=== PATIENT | female | born 1945 | race Caucasian/White ===

== ENCOUNTER 2024-05-27 18:52 | Emergency (ER) | payer MEDICARE, OTHER, SELFPAY ==
[2024-05-27 18:56] VITALS: BP 177/75; PULSE 71; RESP 16; TEMP 36.1; O2SAT 96; BMI 28.3
[2024-05-27 19:50] LABS: Bacteria Urine Many (>30); RBC Urine 0-1/HPF (0-5/HPF); Squamous Epithelial Cell Urine 5-10 /HPF (0-5/HPF); Urine Volume 10mL (spun); WBC Urine 10-30/HPF (0-5/HPF)
[2024-05-27 19:51] LABS: Culture Indicated Urine Specimen Cultured; Mucus Urine 1+ (Negative)
[2024-05-27 19:57] VITALS: O2SAT 97
[2024-05-27 19:58] VITALS: BP 178/79; PULSE 72; RESP 18; O2SAT 98
--- NOTE | 2024-05-27 20:37 | ED_ITS ---
HPI - Female Genitourinary General Chief complaint: Urogenital-Female Stated complaint: thinks has UTI, Rt ft pain Time Seen by Provider: 05/27/24 19:16 History of Present Illness HPI Narrative: 78-year-old female presents for possible UTI. Reports frequency and burning with urination. Triage report states right foot pain. Patient states that she has chronic foot pain but this is not why she is here today and does not want this issue addressed in the emergency department. Patient has had intermittent burning for the last 2 weeks but due to transportation issues this is the 1st time she was being seen for this issue. Denies fevers, chills, nausea, vomiting, flank pain, other complaints at this time. Denies recent antibiotic use. Related Data Previous Rx's Medication Instructions Recorded cephalexin 500 mg capsule 500 mg PO Q12H #10 caps 05/27/24 Allergies Allergy/AdvReac Type Severity Reaction Status Date / Time Sulfa (Sulfonamide Allergy Verified 05/27/24 18:56 Antibiotics) Patient History alcohol intake frequency: holidays/special occasions only Substance Use Type: does not use Exam Initial Vital Signs Initial Vital Signs: Vital Signs Temperature 97.0 F L 05/27/24 18:56 Pulse Rate 71 05/27/24 18:56 Respiratory Rate 16 05/27/24 18:56 Blood Pressure 177/75 H 05/27/24 18:56 Pulse Oximetry 96 05/27/24 18:56 Oxygen Delivery Method Room Air 05/27/24 18:56 Const: Awake, alert, no acute distress, nontoxic appearing Cardiac: regular rate, regular rhythm RESP: unlabored, clear bilaterally, no wheezing GI: Soft, nontender, nondistended MSK: Atraumatic, no midline tenderness, no CVA tenderness bilaterally Skin: Warm, Dry, intact, no rashes Neuro: AO x3, CN II-XII grossly intact, moves all extremities Course Orders Ordered: Discontinued Medications Cephalexin HCl (Cephalexin 250 Mg Capsule) 1,000 mg PO NOW ONE Stop: 05/27/24 20:38 Last Admin: 05/27/24 20:46 Dose: 1,000 mg Documented By: DANTE Ondansetron HCl (Ondansetron 4 Mg/2 Ml Inj) 4 mg IV NOW PRN PRN Reason: Nausea And Vomiting Ondansetron HCl (Ondansetron 4 Mg Odt) 4 mg SL NOW PRN PRN Reason: Nausea And Vomiting Vital Signs Vital signs: Vital Signs - 8 hr 05/27/24 18:56 05/27/24 19:57 05/27/24 19:58 Temperature 97.0 F L Pulse Rate 71 Respiratory Rate 16 Blood Pressure 177/75 H 178/79 H Pulse Oximetry 96 97 Oxygen Delivery Method Room Air 05/27/24 19:58 Temperature Pulse Rate 72 Respiratory Rate 18 Blood Pressure Pulse Oximetry 98 Oxygen Delivery Method Room Air MDM - Female Genitourinary Lab Data Labs: Lab Results 05/27/24 Range/Units 19:00 Urine RBC 0-1/hpf (0-5/HPF) Urine WBC 10-30/hpf H (0-5/HPF) Ur Squamous Epith Cells 5-10 /hpf H (0-5/HPF) Urine Bacteria Many (>30) H (None) Urine Mucus 1+ H (Negative) Ur Culture Indicated? Specimen cultured Vol Urine Centrifuged 10ml (spun) Urine Dip Bedside Urine Glucose Negative Bedside Urine Bilirubin - Negative Bedside Urine Ketone - Negative Urine Specific [place] 1.015 Bedside Urine Occult Blood ++ Bedside Urine pH 6.0 Bedside Urine Protein - Negative Bedside Urine Nitrite + Positive Bedside Urine Leukocytes ++ 125 Esterase MDM Narrative Medical decision making narrative: Well-appearing patient with symptoms of urinary tract infection. Physical exam is otherwise unremarkable. Abdomen is soft and nontender, patient has no flank pain, no signs or symptoms of systemic infection. Urinalysis confirms UTI. Patient given initial dose of antibiotic in the emergency department and prescription sent to pharmacy of choice. Discharge Plan Departure Patient Disposition: Home Clinical Impression: Urinary tract infection Instructions: DI for Urinary Tract Infection (UTI) Activity Restrictions/Additional Instructions: Finish all of your antibiotics even if you feel improved. Drink plenty of fluids. Come back if you notice you are not improving after several days of antibiotics or if you have fever, upper back pain, or vomiting. Prescriptions: New cephalexin 500 mg capsule 500 mg PO Q12H Qty: 10 0RF Referrals: Miscellaneous,DoctorMD [Primary Care Provider] - Stand Alone Forms: Patient Portal/API
[2024-05-27] MEDS: cephALEXin 250 MG CAPSULE 1000 MG PO (20:46)
[2024-05-27 20:55] VITALS: BP 178/79; PULSE 72; RESP 18; O2SAT 96
== END 2024-05-27 21:12 | disposition home or self-care (01) ==
PROVIDERS: Emergency Provider Emergency Medicine
DX: N39.0 Urinary tract infection, site not specified (principal)
CPT/HCPCS: 81003; 81015; 87077; 87086; 87186; 99283

== ENCOUNTER 2024-09-03 14:53 | Emergency (ER) | payer SELFPAY ==
[2024-09-03 15:12] VITALS: BP 127/62; PULSE 74; RESP 18; TEMP 36.4; O2SAT 95; BMI 29.2
[2024-09-03 16:23] LABS: Bacteria Urine None Seen; Culture Indicated Urine Cult Not Indicated; RBC Urine 1-5/HPF (0-5/HPF); Squamous Epithelial Cell Urine None Seen (0-5/HPF); Urine Volume 10mL (spun); WBC Urine None Seen (0-5/HPF)
[2024-09-03] MEDS: ONDANSETRON 4 MG/2 ML INJ IV (16:28)
[2024-09-03 16:50] LABS: Add Manual Diff / Slide Review NO; Basophils Absolute Auto 100 /uL (0-100); Basophils Percent Auto 1.1 % (0-2); Eosinophils Absolute Auto 200 /uL (0-450); Eosinophils Percent Auto 3.7 % (2-4); Hematocrit 34.2 % (36-46); Hemoglobin 11.7 g/dL (12.0-16.0); Lymphocytes Absolute Auto 1500 /uL (1100-4500); Lymphocytes Percent Auto 24.1 % (25-40); Mean Corpuscular HGB Conc 34.3 % (30-36); Mean Corpuscular Hemoglobin 32.9 PG (26-34); Mean Corpuscular Volume 95.7 fL (80-100); Monocytes Absolute Auto 700 /uL (0-900); Monocytes Percent Auto 11.6 % (3-14); Neutrophils Absolute Auto 3700 /uL (1500-7000); Neutrophils Percent Auto 59.5 % (50-75); Platelet Count 252 X10^3/uL (150-400); Red Blood Cell Count 3.57 X10^6/uL (4.0-5.2); Red Cell Distribution Width 12.9 % (11.6-14.8); White Blood Cell Count 6.2 X10^3/uL (4.5-11.0)
[2024-09-03 16:55] LABS: Alanine Aminotransferase 28 IU/L (<35); Albumin 3.9 g/dL (3.5-5.0); Albumin Globulin Ratio 1.4 (1.0-2.8); Alkaline Phosphatase 115 U/L (38-126); Aspartate Aminotransferase 41 IU/L (14-36); BUN Creatinine Ratio 33.3 (6-22); Bilirubin Total 0.5 mg/dL (0.2-1.3); Blood Urea Nitrogen 22 mg/dL (7-17); Calcium 9.3 mg/dL (8.4-10.2); Carbon Dioxide 31 mmol/L (22-32); Chloride 102 mmol/L (98-107); Estimated Glomerular Filt Rate > 60 mL/min (>60); Globulin 2.7 g/dL (1.7-4.1); Glucose 89 mg/dL (80-110); HEMOLYSIS < 15 (0-50); Lipase 90 U/L (23-300); Potassium 3.7 mmol/L (3.4-5.1); Sodium 135 mmol/L (137-145); Total Protein 6.6 g/dL (6.3-8.2)
[2024-09-03 17:07] VITALS: PULSE 70; O2SAT 95
--- NOTE | 2024-09-03 17:13 | EKG_ITS ---
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
--- NOTE | 2024-09-03 17:16 | DI.CT.S_ITS ---
PROCEDURE: CT KIDNEY URETER BLADDER (KUB) INDICATIONS: LLQ/flank pain TECHNIQUE: Axial sections were acquired from the lung bases to the pubic symphysis. Coronal and sagittal reformats were performed. For radiation dose reduction, the following was used: automated exposure control, adjustment of mA and/or kV according to patient size. COMPARISON: None. FINDINGS: Image quality: Diagnostic. Peritoneum: No pneumoperitoneum or ascites. Bones: No acute osseous abnormality. Lower Chest: Mild aortic valve calcifications. Small hiatal hernia. Liver: Normal in size and contour. Gallbladder: No stones or pericholecystic fluid. Biliary tree: No intrahepatic or extrahepatic biliary ductal dilatation. Pancreas: Within normal limits. Spleen: Normal in size and contour. Kidneys: Mild left hydroureteronephrosis without an obstructing calculus. 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 Adrenals: No adrenal nodularity. Bladder: Mildly elongated appearance of the left side of the urinary bladder (4/52), possibly a psoas hitch. : No acute abnormality. Stomach: Normal in size and contour. Bowel: Normal in diameter without any bowel obstruction. No secondary signs of acute appendicitis. Scattered colonic diverticulosis. Lymph Nodes: No retroperitoneal, mesenteric, or inguinal lymphadenopathy. Vascular: No abdominal aortic aneurysm. Soft Tissues: No acute abnormality. IMPRESSION: Mild left hydroureteronephrosis without an obstructing calculus, which may be secondary to a recently passed calculus or ascending infection. Please correlate with urinalysis. Dictated by: Tony Villafuerte M.D. on 09/03/2024 at 17:27 Approved by: Tony Villafuerte M.D. on 09/03/2024 at 17:39
[2024-09-03 17:30] VITALS: PULSE 81
[2024-09-03] MEDS: KETOROLAC 30 MG/ML VIAL 15 MG IV (17:37)
--- NOTE | 2024-09-03 18:00 | ED_ITS ---
HPI - Abdominal Pain General Chief Complaint: Urogenital-Female Stated Complaint: abd,back, and leg pain Time Seen by Provider: 09/03/24 15:47 Source: patient Mode of arrival: Ambulatory History of Present Illness HPI narrative: 78-year-old female with left flank and left lower quadrant abdominal discomfort, history of kidney stones, diagnosed with urinary tract infection at urgent care clinic yesterday, started on cephalexin antibiotic. Still having pain. Also has pain to her left anterior thigh, bruising noted, no specific injury recalled at that area. No truncal injuries recalled. No fevers or chills. No nausea or vomiting. No cough or shortness of breath. Related Data Previous Rx's Medication Instructions Recorded cephalexin 500 mg capsule 500 mg PO Q12H #10 caps 05/27/24 Allergies Allergy/AdvReac Type Severity Reaction Status Date / Time Sulfa (Sulfonamide Allergy Verified 09/03/24 15:09 Antibiotics) Review of Systems Review of Systems Narrative: See HPI Patient History Social History (System 09/03/24 @ 15:09 by Brayden Perkins) Smoking Status: Never smoker Smoking Status: Never smoker alcohol intake frequency: holidays/special occasions only Substance Use Type: does not use Exam Narrative Exam Narrative: GENERAL: Well-developed patient, in mild distress. HEAD: Atraumatic. Normocephalic. EYES: Pupils equal round and reactive. Extraocular motions intact. No scleral icterus. No injection or drainage. ENT: Nose without bleeding, purulent drainage. Airway patent. NECK: Trachea midline. Non tender CARDIOVASCULAR: Regular rate and rhythm without murmurs, gallops, or rubs. RESPIRATORY: Clear to auscultation. Breath sounds equal bilaterally. No wheezes, rales, or rhonchi. GASTROINTESTINAL: Abdomen soft, non-tender, nondistended. EXTREMITIES: No edema or joint tenderness. Proximal anterior thigh with oval shaped bruise about 8 x 5 cm with central induration, no fluctuance, appears days old, no skin vesicles. BACK: Nontender without deformity or crepitance. No flank tenderness. NEURO: AOx3. Motor functions grossly nonfocal SKIN: No rash or erythema of visible areas Initial Vital Signs Initial Vital Signs: Vital Signs Temperature 97.6 F 09/03/24 15:12 Pulse Rate 74 09/03/24 15:12 Respiratory Rate 18 09/03/24 15:12 Blood Pressure 127/62 09/03/24 15:12 Pulse Oximetry 95 09/03/24 15:12 Oxygen Delivery Method Room Air 09/03/24 15:12 Course Orders Ordered: ED Orders 09/03/24 15:50 Urine Microscopic Stat 09/03/24 16:08 Complete Blood Count AUTO DIFF Stat Comprehensive Metabolic Panel Stat Lipase Stat 09/03/24 16:42 EKG-12 Lead Stat 09/03/24 17:16 CT kidney ureter bladder (KUB) Stat Discontinued Medications Ketorolac Tromethamine (Ketorolac 30 Mg/Ml Vial) 15 mg IV NOW ONE Stop: 09/03/24 17:17 Last Admin: 09/03/24 17:37 Dose: 15 mg Documented By: ODILON Ondansetron HCl (Ondansetron 4 Mg/2 Ml Inj) 4 mg IV NOW PRN PRN Reason: Nausea And Vomiting Last Admin: 09/03/24 16:28 Dose: 4 mg Documented By: ODILON Ondansetron HCl (Ondansetron 4 Mg Odt) 4 mg SL NOW PRN PRN Reason: Nausea And Vomiting Ondansetron HCl (Ondansetron 4 Mg/2 Ml Inj) 4 mg IV NOW PRN PRN Reason: Nausea And Vomiting Tramadol HCl (Tramadol 50 Mg Prepack) 1 bottle MISC DIRECTED ONE Stop: 09/03/24 19:18 Last Admin: 09/03/24 19:24 Dose: 1 bottle Documented By: YVONNE Vital Signs Vital signs: Vital Signs - 8 hr 09/03/24 15:12 09/03/24 17:07 09/03/24 17:30 Temperature 97.6 F Pulse Rate 74 70 81 Respiratory Rate 18 Blood Pressure 127/62 Pulse Oximetry 95 95 Oxygen Delivery Method Room Air 09/03/24 18:18 09/03/24 18:18 09/03/24 19:33 Temperature 97.8 F Pulse Rate 60 64 Respiratory Rate 16 Blood Pressure 147/65 H 139/76 Pulse Oximetry 97 97 Oxygen Delivery Method Room Air MDM - Abdominal Pain Lab Data Attestation: I reviewed the patient's lab results. Lab results narrative: White blood cell count 6200, hemoglobin 11.7, platelets adequate. CMP unremarkable. Urine dip negative. Lipase normal. 09/03/24 16:08 09/03/24 16:08 Labs: Lab Results 09/03/24 09/03/24 Range/Units 15:50 16:08 WBC 6.2 (4.5-11.0) X10^3/uL RBC 3.57 L (4.0-5.2) X10^6/uL Hgb 11.7 L (12.0-16.0) g/dL Hct 34.2 L (36-46) % MCV 95.7 (80-100) fL MCH 32.9 (26-34) PG MCHC 34.3 (30-36) % RDW 12.9 (11.6-14.8) % Plt Count 252 (150-400) X10^3/uL Neut % (Auto) 59.5 (50-75) % Lymph % (Auto) 24.1 L (25-40) % Iron % (Auto) 11.6 (3-14) % Eos % (Auto) 3.7 (2-4) % Baso % (Auto) 1.1 (0-2) % Neut # (Auto) 3700 (7790-0711) /uL Lymph # (Auto) 1500 (5603-7742) /uL Iron # (Auto) 700 (0-900) /uL Eos # (Auto) 200 (0-450) /uL Baso # (Auto) 100 (0-100) /uL Sodium 135 L (137-145) mmol/L Potassium 3.7 (3.4-5.1) mmol/L Chloride 102 (98-107) mmol/L Carbon Dioxide 31 (22-32) mmol/L BUN 22 H (7-17) mg/dL Creatinine 0.66 (0.52-1.04) mg/dL Estimated GFR > 60 (>60) mL/min BUN/Creatinine Ratio 33.3 H (6-22) Glucose 89 (80-110) mg/dL Calcium 9.3 (8.4-10.2) mg/dL Total Bilirubin 0.5 (0.2-1.3) mg/dL AST 41 H (14-36) IU/L ALT 28 (<35) IU/L Alkaline Phosphatase 115 (38-126) U/L Total Protein 6.6 (6.3-8.2) g/dL Albumin 3.9 (3.5-5.0) g/dL Globulin 2.7 (1.7-4.1) g/dL Albumin/Globulin Ratio 1.4 (1.0-2.8) Lipase 90 (23-300) U/L Urine RBC 1-5/hpf (0-5/HPF) Urine WBC None seen (0-5/HPF) Ur Squamous Epith Cells None seen (0-5/HPF) Urine Bacteria None seen (None) Ur Culture Indicated? Cult not indicated Vol Urine Centrifuged 10ml (spun) Point of care testing: Urine Dip Bedside Urine Glucose Negative Bedside Urine Bilirubin - Negative Bedside Urine Ketone - Negative Urine Specific [place] 1.025 Bedside Urine Occult Blood + Bedside Urine pH 6.0 Bedside Urine Protein - Negative Bedside Urine Urobilinogen - Negative Bedside Urine Nitrite - Negative Bedside Urine Leukocytes - Negative Esterase Imaging Data CT scan - abdomen/pelvis: Radiologist's Impression: [address] [address] [address] Scan Report Signed Patient: Nery Duran MR#: [id number] : 1945 Acct:[id number] Age/Sex: 78 / F Date of Service: 09/03/24 Loc: ED Accession Number: [id number] Procedure: CT kidney ureter bladder (KUB) Ordering Provider: Rosa Toro MD PROCEDURE: CT KIDNEY URETER BLADDER (KUB) INDICATIONS: LLQ/flank pain TECHNIQUE: Axial sections were acquired from the lung bases to the pubic symphysis. Coronal and sagittal reformats were performed. For radiation dose reduction, the following was used: automated exposure control, adjustment of mA and/or kV according to patient size. COMPARISON: None. FINDINGS: Image quality: Diagnostic. Peritoneum: No pneumoperitoneum or ascites. Bones: No acute osseous abnormality. Lower Chest: Mild aortic valve calcifications. Small hiatal hernia. Liver: Normal in size and contour. Gallbladder: No stones or pericholecystic fluid. Biliary tree: No intrahepatic or extrahepatic biliary ductal dilatation. Pancreas: Within normal limits. Spleen: Normal in size and contour. Kidneys: Mild left hydroureteronephrosis without an obstructing calculus. 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 Adrenals: No adrenal nodularity. Bladder: Mildly elongated appearance of the left side of the urinary bladder (4/52), possibly a psoas hitch. : No acute abnormality. Stomach: Normal in size and contour. Bowel: Normal in diameter without any bowel obstruction. No secondary signs of acute appendicitis. Scattered colonic diverticulosis. Lymph Nodes: No retroperitoneal, mesenteric, or inguinal lymphadenopathy. Vascular: No abdominal aortic aneurysm. Soft Tissues: No acute abnormality. IMPRESSION: Mild left hydroureteronephrosis without an obstructing calculus, which may be secondary to a recently passed calculus or ascending infection. Please correlate with urinalysis. Dictated by: Tony Villafuerte M.D. on 09/03/2024 at 17:27 Approved by: Tony Villafuerte M.D. on 09/03/2024 at 17:39 ECG Data Attestation: I personally reviewed and interpreted this ECG as follows: Interpretation: Normal sinus rhythm with rate of 64, no obvious ST segment elevation or depression changes. NE 160, QRS 92, QTC 445. MDM Narrative Medical decision making narrative: 78-year-old female with recent diagnosis UTI, history of kidney stones, left- sided flank pain, left-sided abdominal discomfort, incidental left anterior upper thigh bruise appears days old, appears unrelated, no truncal trauma known. Afebrile, screening vitals unremarkable. Labs pending. White blood cell count not elevated, CMP normal, urinalysis negative. CT abdomen and pelvis noncontrast study, showed mild left hydroureteronephrosis without obstructing calculus, possibly recently passed stone. See radiology report We discussed CT results, copy given to patient. Discussed diagnosis with daughter on the phone as well. Patient seemed concerned there seems to be persisting pain despite possible recent passage of stone. It is possible that she might have recent passage of stone, or incidental hydroureter, and some other cause for discomfort that might include GI cause, musculoskeletal, other. Encouraged to take [id number] Tylenol and or Motrin medication for pain control. Encouraged to continue course of her prescribed antibiotics for now, in case there is a urine culture from clinic, in case hydroureter on the left side represents recent urine infection. We discussed pain medication, dispensed homepack Tramadol. We discussed follow up given her hydroureter issue, contact information for local Urology. We also discussed consideration for screening colonoscopy, if her pain might be related, or otherwise have screening for colon cancer in follow up, contact information for General surgery provided as well. Encouraged to follow up with her regular doctor early next week. Return precautions discussed. Discharge Plan Departure Patient Disposition: Home Clinical Impression: Acute left flank pain, Hydroureter, left, Left sided abdominal pain Instructions: DI for Urinary Tract Infection (UTI) Activity Restrictions/Additional Instructions: Left flank and left abdominal discomfort, no trauma, history of kidney stones. Recent clinic evaluation yesterday with blood in urine reported, started on Keflex antibiotic. Here for further evaluation. Afebrile, normal vitals. CT abdomen and pelvis imaging today showed dilation of the ureter between the left kidney in the left bladder, it can look this way due to infection, and/or chronic, and/or due to recent passage of kidney stone on that side. The other structures that were imaged on the examination including the intestines and colon and other structures looked reassuring per radiology report. A copy of the report was provided to you. For now continue the antibiotic as prescribed from clinic yesterday, the Keflex antibiotic course. We discussed discharge pain medication, you declined for now. Due to the abnormal ureteral finding, consider urology follow up, contact information given for local urologist Dr. Condon Also you could consider lower endoscopy evaluation if you have persistent symptoms, if your pain does not actually due to any urinary/stone/infection problem. Contact information given for local General surgery on-call also provided, Dr. Dr La. Continue taking the course of your prescribed antibiotic. Take Tylenol and or Motrin for pain control. Drink plenty of fluids. Recheck with urology if symptoms are not improving by early next week. Return earlier to this/nearest emergency department for any change worsening symptoms or any concerns prior Prescriptions: No Action cephalexin 500 mg capsule 500 mg PO Q12H Qty: 10 0RF Referrals: Judson Condon DO [Physician] - Matthew La MD [Physician] - Stand Alone Forms: Patient Portal/API
[2024-09-03 18:18] VITALS: BP 147/65; PULSE 60; O2SAT 97
[2024-09-03] MEDS: TRAMADOL 50 MG PREPACK 1 BOTTLE MISC (19:24)
[2024-09-03 19:33] VITALS: BP 139/76; PULSE 64; RESP 16; TEMP 36.6; O2SAT 97
== END 2024-09-03 19:35 | disposition home or self-care (01) ==
PROVIDERS: Emergency Medicine; Emergency Provider Emergency Medicine
DX: R10.32 Left lower quadrant pain (principal); N13.4 Hydroureter; Z87.442 Personal history of urinary calculi
CPT/HCPCS: 74176; 80053; 81003; 81015; 83690; 85025; 93005; 96374; 96375; 99283; 99284; J1885; J2405

== ENCOUNTER → 2024-11-13 13:32 | Outpatient (CLI) | payer MEDICARE, OTHER, SELFPAY | PROVIDERS: Referring Provider Family Medicine; Visit Provider Family Medicine | DX: R39.9 Unspecified symptoms and signs involving the genitourinary system (principal) | CPT/HCPCS: 87086 ==

== ENCOUNTER → 2025-03-06 10:31 | Outpatient (CLI) | payer MEDICARE, OTHER, SELFPAY ==
--- NOTE | 2025-03-06 10:36 | DI.RAD.S_ITS ---
PROCEDURE: XR ABDOMEN MIN 2V INDICATIONS: PAIN TECHNIQUE: 2 views of the abdomen were acquired. COMPARISON: None. FINDINGS: Surgical changes and devices: Small surgical clips in the right inguinal region. Bowel: No pneumoperitoneum. There is a paucity of small bowel gas. Larger change quantity of stool throughout the colon. No significant gaseous distension of the stomach. Soft tissues: No masses; visualized solid organ contours appear normal in size. No suspicious abdominal calcifications. Bones: No suspicious bony abnormalities. IMPRESSION: Colonic obstipation. Dictated by: Maryan Mclaughlin M.D. on 03/07/2025 at 16:21 Approved by: Maryan Mclaughlin M.D. on 03/07/2025 at 16:22
== END ==
PROVIDERS: PCP Nurse Practitioner Family; Referring Provider Family Medicine; Visit Provider Family Medicine
DX: R10.9 Unspecified abdominal pain (principal); K59.00 Constipation, unspecified
CPT/HCPCS: 74019

== ENCOUNTER 2025-03-08 01:05 | Emergency (ER) | payer MEDICARE, OTHER, SELFPAY ==
[2025-03-08] VITALS (16 sets, daily range): BP systolic 153–184; BP diastolic 66–85; PULSE 79–96; RESP 18–20; TEMP 36.8; O2SAT 89–97; BMI 30.2
--- NOTE | 2025-03-08 01:16 | EKG_ITS ---
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
[2025-03-08] MEDS: ONDANSETRON 4 MG/2 ML INJ IV (01:32)
[2025-03-08 01:36] LABS: Add Manual Diff / Slide Review NO; Basophils Absolute Auto 0 /uL (0-100); Basophils Percent Auto 0.1 % (0-2); Eosinophils Absolute Auto 200 /uL (0-450); Eosinophils Percent Auto 1.2 % (2-4); Hematocrit 37.4 % (36-46); Hemoglobin 12.8 g/dL (12.0-16.0); Lymphocytes Absolute Auto 300 /uL (1100-4500); Lymphocytes Percent Auto 2.8 % (25-40); Mean Corpuscular HGB Conc 34.3 % (30-36); Mean Corpuscular Hemoglobin 32.3 PG (26-34); Mean Corpuscular Volume 94.2 fL (80-100); Monocytes Absolute Auto 600 /uL (0-900); Neutrophils Absolute Auto 11400 /uL (1500-7000); Neutrophils Percent Auto 90.9 % (50-75); Platelet Count 266 X10^3/uL (150-400); Red Blood Cell Count 3.98 X10^6/uL (4.0-5.2); Red Cell Distribution Width 12.8 % (11.6-14.8); White Blood Cell Count 12.5 X10^3/uL (4.5-11.0)
--- NOTE | 2025-03-08 01:41 | ED.ABDPAIN ---
HPI - Abdominal Pain General Chief Complaint: Abdominal Pain Stated Complaint: Abd pain RUQ, NVD Time Seen by Provider: 03/08/25 01:27 Source: patient Mode of arrival: EMS History of Present Illness HPI narrative: 79-year-old female with recent days ongoing right-sided flank and lower abdominal discomfort. Was seen in clinic, recalls x-rays done, told that she might have a kidney stone. Was given pain medications to take, not aware that she is on any antibiotics. Has had multiple episodes of nausea and vomiting and increasing right-sided flank and right lower quadrant discomfort. Also has ongoing headache and nausea. Related Data Previous Rx's Medication Instructions Recorded cephalexin 500 mg capsule 500 mg PO Q12H #10 caps 05/27/24 Allergies Allergy/AdvReac Type Severity Reaction Status Date / Time Sulfa (Sulfonamide Allergy Verified 09/03/24 15:09 Antibiotics) Patient History Social History (System 09/03/24 @ 15:09 by Brayden Perkins) Smoking Status: Never smoker Smoking Status: Never smoker alcohol intake frequency: holidays/special occasions only Exam Narrative Exam Narrative: GENERAL: Well-developed patient, in mild distress. HEAD: Atraumatic. Normocephalic. EYES: Pupils equal round and reactive. Extraocular motions intact. No scleral icterus. No injection or drainage. ENT: Nose without bleeding, purulent drainage. Throat without erythema, tonsillar hypertrophy or exudate. Airway patent. NECK: Trachea midline. Non tender CARDIOVASCULAR: Regular rate and rhythm without murmurs, gallops, or rubs. RESPIRATORY: Clear to auscultation. Breath sounds equal bilaterally. No wheezes, rales, or rhonchi. GASTROINTESTINAL: Abdomen nondistended nonrigid, some tenderness to the right lower quadrant without guarding or rebound. No CVA region tenderness right or left side. EXTREMITIES: No edema or joint tenderness. BACK: Nontender without deformity or crepitance. No flank tenderness. NEURO: AOx3. Motor functions grossly nonfocal SKIN: No rash or erythema of visible areas Initial Vital Signs Initial Vital Signs: Vital Signs Temperature 98.3 F 03/08/25 01:10 Pulse Rate 88 03/08/25 01:10 Respiratory Rate 20 03/08/25 01:10 Blood Pressure 184/85 H 03/08/25 01:10 Pulse Oximetry 95 03/08/25 01:10 Oxygen Delivery Method Room Air 03/08/25 01:10 Course Orders Ordered: Discontinued Medications Diphenhydramine HCl (Diphenhydramine 50 Mg/Ml Vial) 50 mg IV NOW ONE Stop: 03/08/25 04:46 Last Admin: 03/08/25 04:57 Dose: 50 mg Documented By: Famotidine (Famotidine 20 Mg/2 Ml Vial) 20 mg IV NOW JUAN Last Admin: 03/08/25 04:57 Dose: 20 mg Documented By: Ondansetron HCl (Ondansetron 4 Mg/2 Ml Inj) 4 mg IV NOW PRN PRN Reason: Nausea And Vomiting Last Admin: 03/08/25 01:32 Dose: 4 mg Documented By: Ondansetron HCl (Ondansetron 4 Mg Odt) 4 mg PO NOW PRN PRN Reason: Nausea And Vomiting Ondansetron HCl (Ondansetron 4 Mg/2 Ml Inj) 4 mg IV NOW ONE Stop: 03/08/25 04:32 Prochlorperazine (Prochlorperazine 10 Mg/2 Ml Vial) 5 mg IV NOW ONE Stop: 03/08/25 04:46 Last Admin: 03/08/25 04:55 Dose: 5 mg Documented By: Vital Signs Vital signs: Vital Signs - 8 hr 03/08/25 01:10 03/08/25 01:11 03/08/25 01:12 Temperature 98.3 F Pulse Rate 88 96 H Respiratory Rate 20 Blood Pressure 184/85 H 184/85 H Pulse Oximetry 95 95 Oxygen Delivery Method Room Air 03/08/25 01:12 03/08/25 01:30 03/08/25 02:00 Temperature Pulse Rate 91 H 85 80 Respiratory Rate Blood Pressure Pulse Oximetry 95 94 95 Oxygen Delivery Method 03/08/25 02:30 03/08/25 03:00 03/08/25 03:30 Temperature Pulse Rate 80 79 79 Respiratory Rate Blood Pressure Pulse Oximetry 94 94 96 Oxygen Delivery Method 03/08/25 04:00 03/08/25 04:30 03/08/25 05:00 Temperature Pulse Rate 86 88 95 H Respiratory Rate 18 Blood Pressure Pulse Oximetry 94 96 89 L Oxygen Delivery Method 03/08/25 05:30 03/08/25 05:44 03/08/25 05:44 Temperature Pulse Rate 83 92 H Respiratory Rate Blood Pressure 154/70 H Pulse Oximetry 95 96 Oxygen Delivery Method 03/08/25 06:00 03/08/25 06:01 03/08/25 06:01 Temperature Pulse Rate 91 H 92 H Respiratory Rate Blood Pressure 153/66 H Pulse Oximetry 97 94 Oxygen Delivery Method MDM - Abdominal Pain Lab Data Attestation: I reviewed the patient's lab results. Lab results narrative: White blood cell count 61627, hemoglobin 12.8. Basic metabolic panel unremarkable, liver functions showed transaminitis mild only, lipase unremarkable. 03/08/25 01:25 03/08/25 01:25 Labs: Lab Results 03/08/25 Range/Units 01:25 WBC 12.5 H (4.5-11.0) X10^3/uL RBC 3.98 L (4.0-5.2) X10^6/uL Hgb 12.8 (12.0-16.0) g/dL Hct 37.4 (36-46) % MCV 94.2 (80-100) fL MCH 32.3 (26-34) PG MCHC 34.3 (30-36) % RDW 12.8 (11.6-14.8) % Plt Count 266 (150-400) X10^3/uL Neut % (Auto) 90.9 H (50-75) % Lymph % (Auto) 2.8 L (25-40) % [place] % (Auto) 5.0 (3-14) % Eos % (Auto) 1.2 L (2-4) % Baso % (Auto) 0.1 (0-2) % Neut # (Auto) 96734 H (7099-9877) /uL Lymph # (Auto) 300 L (7207-4078) /uL [place] # (Auto) 600 (0-900) /uL Eos # (Auto) 200 (0-450) /uL Baso # (Auto) 0 (0-100) /uL Sodium 135 L (137-145) mmol/L Potassium 3.8 (3.4-5.1) mmol/L Chloride 101 (98-107) mmol/L Carbon Dioxide 25 (22-32) mmol/L BUN 24 H (7-17) mg/dL Creatinine 0.53 (0.52-1.04) mg/dL Estimated GFR > 60 (>60) mL/min BUN/Creatinine Ratio 45.3 H (6-22) Glucose 120 H (70-99) mg/dL Calcium 9.1 (8.4-10.2) mg/dL Total Bilirubin 0.8 (0.2-1.3) mg/dL AST 42 H (14-36) IU/L ALT 40 H (<35) IU/L Alkaline Phosphatase 93 (38-126) U/L Total Protein 7.6 (6.3-8.2) g/dL Albumin 4.5 (3.5-5.0) g/dL Globulin 3.1 (1.7-4.1) g/dL Albumin/Globulin Ratio 1.5 (1.0-2.8) Lipase 55 (23-300) U/L ECG Data Interpretation: Normal sinus rhythm with rate of 87, no obvious ST segment elevation or depression changes. OK 136, QRS 88, QTC 483. MDM Narrative Medical decision making narrative: 79-year-old female with right-sided abdomen pain no injury trauma. Afebrile, sirs screen negative. Also complains of headache. Screening studies show white blood cell count 81209, renal function adequate, CT abdomen and pelvis ordered. CT abdomen and pelvis. Impressions: ?No evidence of colitis diverticulitis bowel obstruction or obstructive uropathy. Appendix not seen. Incidental findings as detailed. ? See tele radiology report Patient also has headache, nonfocal neuro exam, no obvious trauma, requests imaging of her head. CT head ordered. CT head noncontrast. Impression: ?No acute intracranial abnormality. ? See tele radiology report. Still nauseated, still has headache, IV compazine/benadryl. Patient feels better, nausea and headache resolved. Unclear cause of her abdominal discomfort, CT imaging negative. Consider colonoscopy in follow up. Patient we will see her doctor in 5 days this Saturday. Instructed to return to this/nearest emergency department for any change worsening symptoms or any concerns prior Discharge Plan Departure Patient Disposition: Home Clinical Impression: Abdominal pain, Headache Activity Restrictions/Additional Instructions: Abdominal discomfort of unclear cause. CT abdomen and pelvis imaging did not show any definite reason for your discomfort. No definite urinary tract infection like changes. Consider colonoscopy in follow up, discuss this with your doctor when you see them this Saturday as scheduled. You also had headache, had been ongoing, you requested imaging, CT head performed and showed no acute changes. You had some associated nausea. You received IV Compazine with some Benadryl also IV, and your symptoms got better. Further follow up and evaluation as an outpatient for now. Recheck with your regular doctor this Saturday as scheduled. Return to this/nearest emergency department for any change worsening symptoms or any concerns prior. Prescriptions: No Action cephalexin 500 mg capsule 500 mg PO Q12H Qty: 10 0RF Referrals: Renata Cornelius ARNP [Primary Care Provider] - Stand Alone Forms: Patient Portal/API/Survey
[2025-03-08 01:45] LABS: Alanine Aminotransferase 40 IU/L (<35); Albumin 4.5 g/dL (3.5-5.0); Albumin Globulin Ratio 1.5 (1.0-2.8); Alkaline Phosphatase 93 U/L (38-126); Aspartate Aminotransferase 42 IU/L (14-36); BUN Creatinine Ratio 45.3 (6-22); Bilirubin Total 0.8 mg/dL (0.2-1.3); Blood Urea Nitrogen 24 mg/dL (7-17); Calcium 9.1 mg/dL (8.4-10.2); Carbon Dioxide 25 mmol/L (22-32); Chloride 101 mmol/L (98-107); Estimated Glomerular Filt Rate > 60 mL/min (>60); Globulin 3.1 g/dL (1.7-4.1); Glucose 120 mg/dL (70-99); HEMOLYSIS 24 (0-50); Lipase 55 U/L (23-300); Potassium 3.8 mmol/L (3.4-5.1); Sodium 135 mmol/L (137-145); Total Protein 7.6 g/dL (6.3-8.2)
--- NOTE | 2025-03-08 02:03 | DI.CT.S_ITS ---
PROCEDURE: CT ABDOMEN PELVIS W CON INDICATIONS: Right-sided abdominal pain and flank pain TECHNIQUE: After the administration of intravenous contrast, axial sections acquired from the lung bases to the pubic symphysis. Coronal and sagittal reformats were performed. For radiation dose reduction, the following was used: automated exposure control, adjustment of mA and/or kV according to patient size. COMPARISON: None. FINDINGS: Image quality: Diagnostic. Lower Chest: Small hiatal hernia. ABDOMEN: Liver: No solid mass. Gallbladder: Absent. Biliary ducts: No intrahepatic or extrahepatic biliary dilation, accounting for a post cholecystectomy state. Pancreas: No ductal dilation. Pancreatic divisum. Spleen: Size is within normal limits. Adrenal Glands: No adrenal nodules. Kidneys and Ureters: No hydronephrosis. No solid mass. No complex renal cystic lesion which requires follow up. Stomach and Bowel: Normal colonic caliber, without significant wall thickening. Normal appendix. Fluid within the large bowel. Peritoneum: No abnormal intraperitoneal fluid. No free air. Ventral Wall: No significant ventral hernia. Abdominal Nodes: No retroperitoneal or mesenteric adenopathy by size criteria. Vessels: Aorta and inferior vena cava are normal in size. PELVIS: Pelvic Organs: Unremarkable. Bladder: No bladder wall thickening, accounting for underdistention. Pelvic Nodes: No enlarged lymph nodes. Miscellaneous: No inguinal hernias are seen. Bones: No aggressive osseous abnormality. IMPRESSION: Fluid within the large bowel, consistent with a diarrheal illness. No evidence of colitis. Normal appendix. No nephrolithiasis. Dictated by: Sam Foote M.D. on 03/08/2025 at 8:13 Approved by: Sam Foote M.D. on 03/08/2025 at 8:19
--- NOTE | 2025-03-08 04:45 | DI.CT.S_ITS ---
PROCEDURE: CT HEAD/BRAIN WO CON INDICATIONS: headache TECHNIQUE: Noncontrast 4.5 mm thick angled axial sections acquired from the foramen magnum to the vertex, with coronal and sagittal reformats. For radiation dose reduction, the following was used: automated exposure control, adjustment of mA and/or kV according to patient size. COMPARISON: None. FINDINGS: Image quality: Diagnostic. CSF spaces: Basal cisterns are patent. No extra-axial fluid collections. The ventricles are symmetric in size and shape. Brain: No intracranial bleeds or mass effect. There is cerebral volume loss, with resultant ventricular and sulcal prominence. There are periventricular and deep white matter chronic small vessel ischemic changes. There is intracranial internal carotid artery atherosclerosis. Skull and face: Calvarium and visualized facial bones appear intact, without suspicious lesions. Sinuses: Prior endoscopic sinonasal surgery with moderate opacification of the ethmoid air cells. The mastoids are clear. IMPRESSION: No acute intracranial pathology. Findings are concordant with preliminary interpretation provided by [facility]. Dictated by: Eric Anthony M.D. on 03/08/2025 at 8:01 Approved by: Eric Anthony M.D. on 03/08/2025 at 8:03
[2025-03-08] MEDS: PROCHLORPERAZINE 10 MG/2 ML VIAL 5 MG IV (04:55)
[2025-03-08] MEDS: diphenhydrAMINE 50 MG/ML VIAL IV (04:57)
[2025-03-08] MEDS: FAMOTIDINE 20 MG/2 ML VIAL IV (04:57)
== END 2025-03-08 07:03 | disposition home or self-care (01) ==
PROVIDERS: Emergency Provider Emergency Medicine; PCP Nurse Practitioner Family
DX: R10.31 Right lower quadrant pain (principal); R51.9 Headache, unspecified
CPT/HCPCS: 36415; 70450; 74177; 80053; 83690; 85025; 93005; 96374; 96375; 99284; J0780; J1200; J2405; Q9967

== ENCOUNTER 2025-06-05 09:56 | Observation (INO) | payer MEDICARE, OTHER, SELFPAY ==
[2025-06-05] VITALS (22 sets, daily range): BP systolic 135–208; BP diastolic 62–123; PULSE 56–75; RESP 9–39; TEMP 36.4–36.7; O2SAT 92–100; BMI 30.8; BMI 32.9
--- NOTE | 2025-06-05 10:20 | DI.RAD.S_ITS ---
PROCEDURE: XR HAND LT MIN 3V INDICATIONS: swelling, blunt injury TECHNIQUE: 3 views of the hand(s) acquired. COMPARISON: None. FINDINGS: Bones: Generalized decreased osseous mineralization noted. Vertical fracture through the base of the 5th proximal phalanx extends to the MCP articular surface Soft tissues: No suspicious soft tissue calcifications. IMPRESSION: Intra-articular 5th proximal phalangeal fracture Osteopenia Approved by: Walter Griffith M.D. on 06/05/2025 at 10:13
--- NOTE | 2025-06-05 10:20 | DI.RAD.S_ITS ---
PROCEDURE: XR WRIST RT MIN 3V INDICATIONS: fall, injury pain TECHNIQUE: 3 views of the wrist were acquired. COMPARISON: None. FINDINGS: Bones: No fractures or dislocations. No suspicious bony lesions. Soft tissues: No suspicious soft tissue calcifications. IMPRESSION: Osteopenia without fracture Approved by: Walter Griffith M.D. on 06/05/2025 at 10:23
--- NOTE | 2025-06-05 10:26 | DI.CT.S_ITS ---
PROCEDURE: CT FACIAL BONES WO CON INDICATIONS: fall TECHNIQUE: Noncontrast 2.5 mm thick axial images acquired from the mandible through the frontal sinuses, with coronal and sagittal reformatting. For radiation dose reduction, the following was used: automated exposure control, adjustment of mA and/or kV according to patient size. COMPARISON: None. FINDINGS: Image quality: Excellent. Bones and teeth: Orbital crespo are intact. Sinus crespo show no fracture or deformity. Nasal bones and septum are intact. Visualized portions of the mandible demonstrate no fractures or subluxation. Zygomatic arches are intact. Pterygoid plates are intact. Visualized portions of the skull base and auditory canals are intact. Sinuses: Bilateral uncinectomy and ethmoidectomy results in large nasoantral windows. Small incidental left maxillary retention cyst Soft tissues: No edema, masses, or fluid collections. No enlarged lymph nodes. No soft tissue lacerations or debris. Vascular: Visualized vascular structures appear normal in the absence of contrast. Bony vascular foramina and canals are intact. IMPRESSION: No evidence of facial bone fracture Approved by: Walter Griffith M.D. on 06/05/2025 at 10:35
--- NOTE | 2025-06-05 10:26 | DI.CT.S_ITS ---
PROCEDURE: CT HEAD/BRAIN WO CON INDICATIONS: fall TECHNIQUE: Noncontrast 4.5 mm thick angled axial sections acquired from the foramen magnum to the vertex, with coronal and sagittal reformats. For radiation dose reduction, the following was used: automated exposure control, adjustment of mA and/or kV according to patient size. COMPARISON: [facility], CT, CT HEAD/BRAIN WO CON, 03/08/2025, 4:55. FINDINGS: Image quality: Diagnostic. CSF spaces: Basal cisterns are patent. No extra-axial fluid collections. Ventricles are normal in size and shape. Brain: No midline shift. No intracranial mass effect or hemorrhage. [place]- white matter interface is normal. Skull and face: Calvarium and visualized facial bones are intact, without suspicious lesions. Sinuses: Visualized sinuses and mastoids are clear. Prior sinus surgery IMPRESSION: Atrophy and chronic ischemic change acute hemorrhage or mass effect Approved by: Walter Griffith M.D. on 06/05/2025 at 10:29
--- NOTE | 2025-06-05 10:26 | DI.CT.S_ITS ---
PROCEDURE: CT CERVICAL SPINE WO CON INDICATIONS: fall TECHNIQUE: Noncontrast 3 mm thick sections acquired from the skull base to the T4 level. Sagittal and coronal reformats were then constructed. For radiation dose reduction, the following was used: automated exposure control, adjustment of mA and/or kV according to patient size. COMPARISON: None. FINDINGS: Image quality: Excellent. Bones: No fractures or dislocations. Visualized superior ribs are intact. Disc space narrowing hypertrophic facet joints particularly in the mid cervical spine associated with grade 1 anterior degenerative spondylolisthesis at C4-5 and least moderate central stenosis C5-6 Soft tissues: Prevertebral soft tissues are normal in thickness. No paravertebral hematomas. No apical pneumothoraces. 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 on 06/05/2025 at 10:38
--- NOTE | 2025-06-05 11:50 | DI.CT.S_ITS ---
PROCEDURE: CT CHEST ABD PEL W CON INDICATIONS: fall TECHNIQUE: After the administration of intravenous contrast, 5 mm thick sections acquired from the lung apices to the symphysis. 5 mm coronal and sagittal reformats were performed, with additional 7 mm MIP reformats through the lungs. For radiation dose reduction, the following was used: automated exposure control, adjustment of mA and/or kV according to patient size. COMPARISON: [facility], CT, CT ABDOMEN PELVIS W CON, 03/08/2025, 2:12. FINDINGS: Image quality: Excellent. CHEST: Lower Neck: No enlarged lymph nodes. Thyroid: No thyroid nodules which require sonographic follow up, per consensus guidelines. Axillae: No enlarged lymph nodes. Chest Wall: A 2 cm nodular density associated with additional asymmetric breast stroma measuring up to 1.2 cm. Surgical clips adjacent as well. Lungs and Pleura: No pneumothorax or pleural effusions. No consolidation or suspicious nodules. Heart: Heart size is normal. No pericardial effusion. Thoracic Vessels: The aorta and pulmonary arteries demonstrate normal size. Mediastinum and [place]: No enlarged lymph nodes. Esophagus: No wall thickening. No hiatal hernia. ABDOMEN: Liver: No solid mass. Gallbladder: Cholecystectomy Biliary ducts: No biliary dilation. Pancreas: No ductal dilation. Spleen: Size is within normal limits. Adrenal Glands: No adrenal nodules. Kidneys and Ureters: No hydronephrosis. No solid mass. No complex renal cystic lesion which requires follow up. Stomach and Bowel: Normal colonic caliber, without significant wall thickening. Peritoneum: No abnormal intraperitoneal fluid. No free air. Ventral Wall: Small periumbilical ventral hernia contains fat without bowel involvement Abdominal Nodes: No retroperitoneal or mesenteric adenopathy by size criteria. Vessels: Aorta and inferior vena cava are normal in size. PELVIS: Pelvic Organs: Unremarkable. Bladder: No bladder wall thickening, accounting for underdistention. Pelvic Nodes: No enlarged lymph nodes. Miscellaneous: No inguinal hernias are seen. Bones: Degenerative disc disease and arthropathy noted in lower lumbar spine. IMPRESSION: No acute findings. No evidence of traumatic injury or fracture. Right breast nodular lesions should be further evaluated by mammography Approved by: Walter Griffith M.D. on 06/05/2025 at 12:53
[2025-06-05] MEDS: ONDANSETRON 4 MG/2 ML INJ IV ×3 (12:25→22:28)
[2025-06-05 12:41] LABS: Alanine Aminotransferase 33 IU/L (<35); Albumin 3.8 g/dL (3.5-5.0); Albumin Globulin Ratio 1.5 (1.0-2.8); Alkaline Phosphatase 96 U/L (38-126); Blood Urea Nitrogen 19 mg/dL (7-17); Calcium 8.4 mg/dL (8.4-10.2); Carbon Dioxide 28 mmol/L (22-32); Chloride 105 mmol/L (98-107); Estimated Glomerular Filt Rate > 60 mL/min (>60); Globulin 2.6 g/dL (1.7-4.1); Glucose 89 mg/dL (70-99); HEMOLYSIS 20 (0-50); Lipase 96 U/L (23-300); Potassium 3.5 mmol/L (3.4-5.1); Sodium 137 mmol/L (137-145); Total Protein 6.4 g/dL (6.3-8.2)
[2025-06-05 12:53] LABS: Hematocrit 36.4 % (36-46); Hemoglobin 12.7 g/dL (12.0-16.0); Lymphocytes Absolute Auto 1200 /uL (1100-4500); Mean Corpuscular HGB Conc 34.9 % (30-36); Mean Corpuscular Hemoglobin 32.5 PG (26-34); Mean Corpuscular Volume 93.2 fL (80-100)
[2025-06-05 13:03] LABS: Add Manual Diff / Slide Review SLIDE REVIEW; RBC Morphology Normal Morphology
[2025-06-05] MEDS: TET,DIPH,PERTUSS(ACELL),VAC/PF 0.5 ML SYRINGE IM (13:14)
[2025-06-05] MEDS: CEFAZOLIN 2 GM/100 ML PREMIX 100 ML IV (13:30)
--- NOTE | 2025-06-05 14:05 | ED_ITS ---
HPI - General Adult General Chief complaint: Trauma Stated complaint: Fall w/ Multiple injuries Time Seen by Provider: 06/05/25 10:00 Mode of arrival: EMS History of Present Illness HPI narrative: 79 Year old woman, lives at [facility] in, history of right breast cancer, without for her usual morning walk and caught her toe on a rock fell forward landing on her left hand and hitting her face and her upper lip. She is not on a blood thinner, states that she was not having any dizziness, feeling unwell no palpitations and believes this truly was a simple mechanical fall. Complaining of hand pain, elbow, shoulder on the left pain, significant facial pain and pain in the midportion of her back. Related Data Previous Rx's ?Medication ?Instructions ?Recorded cephalexin 500 mg capsule 500 mg PO Q12H #10 caps 05/11 06/03 Allergies Allergy/AdvReac Type Severity Reaction Status Date / Time Sulfa (Sulfonamide Allergy Verified 09/03/24 15:09 Antibiotics) Review of Systems Review of Systems Narrative: Pertinent positive and negative findings as per HPI Patient History Social History Smoking Status: Never smoker Smoking Status: Never smoker alcohol intake frequency: holidays/special occasions only Exam Initial Vital Signs Initial Vital Signs: Vital Signs Temperature 97.9 F 06/05/25 09:58 Pulse Rate 70 06/05/25 09:58 Respiratory Rate 16 06/05/25 09:58 Blood Pressure 192/91 H 06/05/25 09:58 Pulse Oximetry 98 06/05/25 09:58 Oxygen Delivery Method Room Air 06/05/25 09:58 Older-appearing woman, lip is swollen facial bleeding, alert and able to cooperate ache completely with exam HEENT: Moist mucous membranes, normal sclera with reactive pupils, small abrasion to the left side of her eye. Abrasion over her upper lip with laceration on the buccal surface of the lip. Small fracture off the right incisor. No obvious bony abnormalities to suggest a LeFort fracture or acute jaw injuries Neck: Significant distracting injuries, no obvious midline tenderness Respiratory: Lungs are clear to auscultation, no wheezing but difficulty taking a full breath secondary to overall pain Chest: Tenderness to palpation throughout the thorax without obvious bruising or subcutaneous air. Complains of thoracic tenderness T4 through T8 midline Cardiac: Regular rate and rhythm no murmurs no bruits Abdomen: Soft, diffusely tender without rebound, guarding, flank pain, bruising Skin: Abrasions and contusions over her face, Neurologic: Grossly neurologically intact with no obvious asymmetries or abnormalities, she is able to move all extremities Extremities: Left hand with pain at the base of the 1st phalanx, laceration on the palmar crease extending lateral approximately 4 cm, concern for open fracture. She has always had a bit of flexion contracture in the finger that she feels as at her baseline. She can feel the distal tip of her finger and does have reasonable blood flow. Complains of left elbow pain with no bruising, contusion and complete an unrestricted range of motion. Similar findings of the left shoulder with no bony injury to palpation. Unrestricted range of motion at the left shoulder. Not complaining of lower extremity abrasions, contusions or hip pain. Psych: Cooperative, appropriate insight and affect Course Orders Ordered: ED Orders 06/05/25 10:20 XR hand LT min 3V Stat XR wrist RT min 3V Stat 06/05/25 10:26 CT cervical spine wo con Stat CT facial bones wo con Stat CT head/brain wo con Stat 06/05/25 11:50 CT chest abd pel w con Stat 06/05/25 12:23 Complete Blood Count AUTO DIFF Stat Comprehensive Metabolic Panel Stat Lipase Stat 06/05/25 14:51 EKG-12 Lead Stat 06/05/25 15:12 Hemoglobin and Hematocrit Stat Trop I [Troponin I] Stat Acetaminophen (Acetaminophen 325 Mg Tablet) 650 mg PO Q6HR JUAN Hydromorphone HCl (Hydromorphone Hcl 0.5 Mg/0.5 Ml Syringe) 0.5 mg IV Q15MIN PRN PRN Reason: Pain, Last Admin: 06/05/25 15:19 Dose: 0.5 mg Documented By: Admin: 06/05/25 13:14 Dose: 0.5 mg Documented By: Admin: 06/05/25 12:26 Dose: 0.5 mg Documented By: SB Sodium Chloride (Normal Saline 0.9%) 1,000 mls @ 100 mls/hr IV CONT JUAN Stop: 07/06/25 04:14 Naloxone HCl (Naloxone 0.4 Mg/Ml Vial) 0.2 mg IV Q2MIN PRN PRN Reason: Opiate Reversal Ondansetron HCl (Ondansetron 4 Mg Odt) 4 mg SL NOW PRN PRN Reason: nausea Ondansetron HCl (Ondansetron 4 Mg Odt) 4 mg PO Q8HR PRN PRN Reason: Nausea And Vomiting Ondansetron HCl (Ondansetron 4 Mg/2 Ml Inj) 4 mg IV Q8HR PRN PRN Reason: Nausea And Vomiting Oxycodone HCl (Oxycodone Ir 5 Mg Tablet) 5 mg PO Q3H PRN PRN Reason: Pain, Moderate (4-6) Discontinued Medications Diphtheria/Tetanus/Acell Pertussis (Tet,Diph,Pertuss(Acell),Vac/Pf 0.5 Ml Syringe) 0.5 ml IM .ONCE ONE Stop: 06/05/25 12:58 Last Admin: 06/05/25 13:14 Dose: 0.5 ml Documented By: CORRINA Cefazolin Sodium/Dextrose (Ancef) 100 mls @ 200 mls/hr IV NOW ONE Stop: 06/05/25 13:26 Last Infusion: 06/05/25 14:03 Dose: Infused Documented By: Admin: 06/05/25 13:30 Dose: 200 mls/hr Documented By: CORRINA Sodium Chloride (Normal Saline 0.9%) 500 mls @ 1,000 mls/hr IV BOLUS ONE Stop: 06/05/25 14:40 Last Infusion: 06/05/25 15:16 Dose: Infused Documented By: Admin: 06/05/25 14:13 Dose: 1,000 mls/hr Documented By: CORRINA Ondansetron HCl (Ondansetron 4 Mg/2 Ml Inj) 4 mg IV NOW ONE Stop: 06/05/25 11:51 Last Admin: 06/05/25 12:25 Dose: 4 mg Documented By: CORRINA Ondansetron HCl (Ondansetron 4 Mg/2 Ml Inj) 4 mg IV NOW ONE Stop: 06/05/25 15:18 Last Admin: 06/05/25 15:20 Dose: 4 mg Documented By: CORRINA Oxycodone/Acetaminophen (Oxycodone/Acetaminophen 5/325 Tablet) 1 tab PO NOW ONE Stop: 06/05/25 11:44 Last Admin: 06/05/25 11:54 Dose: Not Given Documented By: IZA Vital Signs Vital signs: Vital Signs - 8 hr 06/05/25 13:13 06/05/25 13:30 06/05/25 13:58 Temperature Pulse Rate 62 62 Respiratory Rate 16 18 Blood Pressure 186/123 H 151/62 H 159/68 H Pulse Oximetry 97 96 Oxygen Delivery Method Room Air Nasal Cannula Oxygen Flow Rate 1.5 06/05/25 13:58 06/05/25 14:00 06/05/25 14:01 Temperature 97.5 F L Pulse Rate 60 61 75 Respiratory Rate 21 33 H 39 H Blood Pressure Pulse Oximetry 99 98 Oxygen Delivery Method Oxygen Flow Rate 06/05/25 14:01 06/05/25 14:08 06/05/25 14:08 Temperature Pulse Rate 59 L Respiratory Rate 36 H Blood Pressure 135/63 151/66 H Pulse Oximetry 98 Oxygen Delivery Method Oxygen Flow Rate 06/05/25 14:30 06/05/25 14:30 06/05/25 15:00 Temperature Pulse Rate 60 57 L Respiratory Rate 13 9 L Blood Pressure 151/66 H Pulse Oximetry 97 Oxygen Delivery Method Oxygen Flow Rate 06/05/25 15:04 06/05/25 15:04 06/05/25 15:31 Temperature Pulse Rate 56 L 57 L Respiratory Rate 11 L 23 Blood Pressure 183/78 H 170/74 H Pulse Oximetry 95 96 Oxygen Delivery Method Oxygen Flow Rate 06/05/25 16:00 06/05/25 16:30 06/05/25 17:00 Temperature Pulse Rate 58 L 62 75 Respiratory Rate 25 H 24 17 Blood Pressure 169/75 H 178/77 H 192/84 H Pulse Oximetry 100 100 97 Oxygen Delivery Method Room Air Oxygen Flow Rate 06/05/25 17:30 06/05/25 17:31 06/05/25 17:31 Temperature Pulse Rate 65 66 Respiratory Rate 23 24 Blood Pressure 187/82 H Pulse Oximetry 98 94 Oxygen Delivery Method Room Air Oxygen Flow Rate Medical Decision Making Lab Data 06/05/25 15:12 06/05/25 12:23 Labs: Lab Results 06/05/25 06/05/25 Range/Units 12:23 15:12 WBC 6.9 (4.5-11.0) X10^3/uL RBC 3.90 L (4.0-5.2) X10^6/uL Hgb 12.7 12.3 (12.0-16.0) g/dL Hct 36.4 35.8 L (36-46) % MCV 93.2 (80-100) fL MCH 32.5 (26-34) PG MCHC 34.9 (30-36) % RDW 12.3 (11.6-14.8) % Plt Count TNP Neut % (Auto) 71.1 (50-75) % Lymph % (Auto) 17.6 L (25-40) % [place] % (Auto) 6.8 (3-14) % Eos % (Auto) 3.2 (2-4) % Baso % (Auto) 1.3 (0-2) % Neut # (Auto) 4900 (6179-9581) /uL Lymph # (Auto) 1200 (2019-9525) /uL [place] # (Auto) 500 (0-900) /uL Eos # (Auto) 200 (0-450) /uL Baso # (Auto) 100 (0-100) /uL Platelet Estimate Adequate on smear RBC Morphology Normal morphology Sodium 137 (137-145) mmol/L Potassium 3.5 (3.4-5.1) mmol/L Chloride 105 (98-107) mmol/L Carbon Dioxide 28 (22-32) mmol/L BUN 19 H (7-17) mg/dL Creatinine 0.49 L (0.52-1.04) mg/dL Estimated GFR > 60 (>60) mL/min BUN/Creatinine Ratio 38.8 H (6-22) Glucose 89 (70-99) mg/dL Calcium 8.4 (8.4-10.2) mg/dL Total Bilirubin 0.5 (0.2-1.3) mg/dL AST 43 H (14-36) IU/L ALT 33 (<35) IU/L Alkaline Phosphatase 96 (38-126) U/L Troponin I < 0.012 (0.01-0.034) ng/mL Total Protein 6.4 (6.3-8.2) g/dL Albumin 3.8 (3.5-5.0) g/dL Globulin 2.6 (1.7-4.1) g/dL Albumin/Globulin Ratio 1.5 (1.0-2.8) Lipase 96 (23-300) U/L Imaging Data CT chest abdomen and pelvis: Radiologist's Impression: PROCEDURE: CT CHEST ABD PEL W CON INDICATIONS: fall TECHNIQUE: After the administration of intravenous contrast, 5 mm thick sections acquired from the lung apices to the symphysis. 5 mm coronal and sagittal reformats were performed, with additional 7 mm MIP reformats through the lungs. For radiation dose reduction, the following was used: automated exposure control, adjustment of mA and/or kV according to patient size. COMPARISON: [facility], CT, CT ABDOMEN PELVIS W CON, 03/08/2025, 2:12. FINDINGS: Image quality: Excellent. CHEST: Lower Neck: No enlarged lymph nodes. Thyroid: No thyroid nodules which require sonographic follow up, per consensus guidelines. Axillae: No enlarged lymph nodes. Chest Wall: A 2 cm nodular density associated with additional asymmetric breast stroma measuring up to 1.2 cm. Surgical clips adjacent as well. Lungs and Pleura: No pneumothorax or pleural effusions. No consolidation or suspicious nodules. Heart: Heart size is normal. No pericardial effusion. Thoracic Vessels: The aorta and pulmonary arteries demonstrate normal size. Mediastinum and Moira: No enlarged lymph nodes. Esophagus: No wall thickening. No hiatal hernia. ABDOMEN: Liver: No solid mass. Gallbladder: Cholecystectomy Biliary ducts: No biliary dilation. Pancreas: No ductal dilation. Spleen: Size is within normal limits. Adrenal Glands: No adrenal nodules. Kidneys and Ureters: No hydronephrosis. No solid mass. No complex renal cystic lesion which requires follow up. Stomach and Bowel: Normal colonic caliber, without significant wall thickening. Peritoneum: No abnormal intraperitoneal fluid. No free air. Ventral Wall: Small periumbilical ventral hernia contains fat without bowel involvement Abdominal Nodes: No retroperitoneal or mesenteric adenopathy by size criteria. Vessels: Aorta and inferior vena cava are normal in size. PELVIS: Pelvic Organs: Unremarkable. Bladder: No bladder wall thickening, accounting for underdistention. Pelvic Nodes: No enlarged lymph nodes. Miscellaneous: No inguinal hernias are seen. Bones: Degenerative disc disease and arthropathy noted in lower lumbar spine. IMPRESSION: No acute findings. No evidence of traumatic injury or fracture. Right breast nodular lesions should be further evaluated by mammography Approved by: Walter Griffith M.D. 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 Tender through chest without obvious abnormalities, no obvious bony abnormalities with physical exam to shoulder elbow on the left. Significant laceration at the palmar crease left 1st phalanx with concern for fracture dislocation that is open. That finger is neurovascularly intact. Lower extremities are unremarkable a Lab Test results independently reviewed as above. Pertinent findings: CBC is unremarkable Chemistries are reassuring Lipase is normal Independently reviewed EKG: Sinus Loyd at a rate of 55, no acute ischemia Imaging studies independently reviewed: CT scan of the head shows no intracranial hemorrhage CT cervical spine shows no fractures CT facial bones shows no fracture X-ray right wrist shows no fractures X-ray left hand shows an intra-articular 5th proximal phalanx fracture the extends into the MCP articular surface. Concern for open fracture given the laceration in the same location Consultations: Dr. Celeste, orthopedic surgeon. Reviews films in real-time. Agrees with extensive irrigation, loose closure, ulnar gutter splint and outpatient follow- up. Treatments: One Percocet, Dilaudid, Zofran With concern for the open finger fracture she is given 2 g of Ancef tetanus Re-evaluations: 3pm patient is re-evaluated. She is pale, somewhat diaphoretic has sinus bradycardia at 55, has been in the upper 70s on arrival. Blood pressure remained stable. She continues to complain of severe back pain described as a deep in the left chest feeling. CT scan is unremarkable. Possibility of acute coronary syndrome is entertained. EKG is obtained with no acute ischemic changes. Troponin is ordered. Small fluid bolus along with some marixa kerry ordered. Unclear if this is consequences as all the adrenal and is wearing off, vasovagal response with surgical repair, anesthetizing and washing her hand wound. I am concerned that she is looking significantly worse throughout her emergency department stay and may need observation stay for pain control, this at least vasovagal response with heart rates dipping into the mid 40s, still sinus Loyd. Discussion: 79-year-old woman with a mechanical fall landing on her face and her left hand with a 5th metacarpal fraction that likely is open. That wound has been loosely reapproximated after significant irrigation. She received Kefzol in the ER. She will need to continue doxycycline twice a day until she is seen in outpatient follow up with Dr. Paula Celeste for definitive treatment. Dr. Celeste was involved with looking at films in the emergency department. Patient continues to feel unwell. She has had episodes where she is pale diaphoretic bradycardic. So these episodes were associated with vomiting. There is no evidence of acute coronary syndrome, significant blood loss. CT scans of the head neck chest abdomen pelvis are all unremarkable. I suspect that part of this is simply stress related and Adrenalin wearing off causing continued issues. At this point I am concerned that she is not safe to discharge home particularly knowing that she does not have somebody to help at home Incidentally noted was a right breast nodular lesion close to clips from where her previous breast cancer was removed. This finding is shared with the patient and I did recommend that she follow up with her surgeon and with mammography. I have spoken with our hospitalist, recommended observation overnight to make sure that she is not having any further medical issues to further complicate any of the orthopedic issues after her fall today. Discharge Plan Departure Patient Disposition: Admitted as Observation Clinical Impression: Bradycardia Nausea & vomiting Qualifiers: Vomiting type: unspecified Qualified Code(s): R11.2 - Nausea with vomiting, unspecified Fall Qualifiers: Encounter type: initial encounter Qualified Code(s): W19.XXXA - Unspecified fall, initial encounter Open fracture of fifth metacarpal bone Qualifiers: Encounter type: initial encounter Metacarpal location: base Fracture alignment: displaced Laterality: left Qualified Code(s): S62.317B - Displaced fracture of base of fifth metacarpal bone, left hand, initial encounter for open fracture Breast mass Qualifiers: Laterality: right Breast mass location: unspecified quadrant Qualified Code(s): N63.10 - Unspecified lump in the right breast, unspecified quadrant Admit Date/Time: 06/05/25 17:46 Admit Provider: Angella Mcdonnell
[2025-06-05] MEDS: SODIUM CHLORIDE 0.9% 500 ML 1000 ML IV (14:13)
--- NOTE | 2025-06-05 15:01 | EKG_ITS ---
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
[2025-06-05 15:15] LABS: Hematocrit 35.8 % (36-46); Hemoglobin 12.3 g/dL (12.0-16.0)
[2025-06-05 15:39] LABS: Troponin I < 0.012 ng/mL (0.01-0.034)
[2025-06-05] MEDS: ACETAMINOPHEN 325 MG TABLET 650 MG PO (19:09)
[2025-06-05] MEDS: SODIUM CHLORIDE 0.9% 1,000 ML 100 ML IV (19:10)
[2025-06-05] MEDS: ONDANSETRON 4 MG ODT PO (19:15)
--- NOTE | 2025-06-05 20:07 | PM.HP.1 ---
History of Present Illness History of Present Illness Date Patient Seen: 06/05/25 Time Patient Seen: 20:07 Chief complaint: Fall w/ Multiple injuries Narrative: 79-year-old female with past medical history of right-sided breast cancer, hypertension, hyperlipidemia, presents with a fall. Per the patient's report, the patient went on her usual morning walk when she caught her toe on a rock and fell forward landing on her left hand and hitting the face to the ground. The patient did injure her left and has injured her left finger. Per the patient's report the patient did not lose consciousness and the patient does not take any blood thinner. Otherwise the patient denies any recent fever, chills, nausea, vomiting, diarrhea, chest pain or shortness of breath. In the emergency room, the patient was hemodynamically stable. Labs were relatively benign with negative troponin. CT scan of the head neck and facial bones shows no acute finding. Chest x-ray was also negative. X-ray of the right wrist shows no fracture. X-ray of the left hand shows an intra-articular fifth proximal phalanx fracture that extends into the MCP articular surface. There is also concern for open fracture given the laceration in the same location. other ER physician requested admission for pain control with PT OT. Also recommend to just monitor overnight to make sure there is no other issues. [facility] Social History household members: spouse alcohol intake: never Meds Home Medications and Allergies Home Medications ?Medication ?Instructions ?Recorded ?Confirmed ?Type atorvastatin 20 mg tablet 20 mg PO DAILY 06/05/25 06/05/25 History hydrochlorothiazide 12.5 mg tablet 12.5 mg PO DAILY 06/05/25 06/05/25 History lamotrigine 200 mg tablet 200 mg PO DAILY 06/05/25 06/05/25 History lamotrigine 25 mg tablet 50 mg PO DAILY 06/05/25 06/05/25 History losartan 100 mg tablet 100 mg PO DAILY 06/05/25 06/05/25 History omeprazole 40 mg capsule,delayed 40 mg PO DAILY 06/05/25 06/05/25 History release Allergies Allergy/AdvReac Type Severity Reaction Status Date / Time Sulfa (Sulfonamide Allergy Verified 09/03/24 15:09 Antibiotics) Review of Systems Review of Systems ROS: Yes All systems reviewed with the patient and are negative except as otherwise documented Exam Vital Signs (past 8 hours): - 06/05/25 13:13 06/05/25 13:30 06/05/25 13:58 Temperature Pulse Rate 62 62 Respiratory Rate 16 18 Blood Pressure 186/123 H 151/62 H 159/68 H Pulse Oximetry 97 96 Oxygen Delivery Method Room Air Nasal Cannula Oxygen Flow Rate 1.5 06/05/25 13:58 06/05/25 14:00 06/05/25 14:01 Temperature 97.5 F L Pulse Rate 60 61 75 Respiratory Rate 21 33 H 39 H Blood Pressure Pulse Oximetry 99 98 Oxygen Delivery Method Oxygen Flow Rate 06/05/25 14:01 06/05/25 14:08 06/05/25 14:08 Temperature Pulse Rate 59 L Respiratory Rate 36 H Blood Pressure 135/63 151/66 H Pulse Oximetry 98 Oxygen Delivery Method Oxygen Flow Rate 06/05/25 14:30 06/05/25 14:30 06/05/25 15:00 Temperature Pulse Rate 60 57 L Respiratory Rate 13 9 L Blood Pressure 151/66 H Pulse Oximetry 97 Oxygen Delivery Method Oxygen Flow Rate 06/05/25 15:04 06/05/25 15:04 06/05/25 15:31 Temperature Pulse Rate 56 L 57 L Respiratory Rate 11 L 23 Blood Pressure 183/78 H 170/74 H Pulse Oximetry 95 96 Oxygen Delivery Method Oxygen Flow Rate 06/05/25 16:00 06/05/25 16:30 06/05/25 17:00 Temperature Pulse Rate 58 L 62 75 Respiratory Rate 25 H 24 17 Blood Pressure 169/75 H 178/77 H 192/84 H Pulse Oximetry 100 100 97 Oxygen Delivery Method Room Air Oxygen Flow Rate 06/05/25 17:30 06/05/25 17:31 06/05/25 17:31 Temperature Pulse Rate 65 66 Respiratory Rate 23 24 Blood Pressure 187/82 H Pulse Oximetry 98 94 Oxygen Delivery Method Room Air Oxygen Flow Rate 06/05/25 18:00 06/05/25 18:00 06/05/25 18:30 Temperature Pulse Rate 63 Respiratory Rate 23 Blood Pressure 174/85 H 173/77 H Pulse Oximetry 94 Oxygen Delivery Method Oxygen Flow Rate 06/05/25 18:30 Temperature Pulse Rate 66 Respiratory Rate 15 Blood Pressure Pulse Oximetry 92 Oxygen Delivery Method Oxygen Flow Rate Oxygen Delivery Method Room Air Oxygen Flow Rate 1.5 Narrative Exam Narrative: Physical Exam: GENERAL: The patient is not in any acute distressed. Awake and alert. HEENT: Nonicteric sclerae, PERRLA, EOMI. Oropharynx clear. Moist mucous membranes. Conjunctivae appear well perfused. HEART: Regular rate and rhythm without murmurs. No lower extremities edema. LUNGS: Clear to auscultation bilaterally. No wheezing, crackles or rhonchi ABDOMEN: Soft, positive bowel sounds, nontender. SKIN: No rash, no excessive bruising, petechiae, or purpura. NEUROLOGIC: left finger and hand/arm in dressing and immobilizer. AxO x 3. Cranial nerves II-XII intact without motor/sensory deficit. Objective Labs 06/05/25 15:12 06/05/25 12:23 Labs: Laboratory Results - last 24 hr 06/05/25 06/05/25 12:23 15:12 WBC 6.9 RBC 3.90 L Hgb 12.7 12.3 Hct 36.4 35.8 L MCV 93.2 MCH 32.5 MCHC 34.9 RDW 12.3 Plt Count TNP Neut % (Auto) 71.1 Lymph % (Auto) 17.6 L [place] % (Auto) 6.8 Eos % (Auto) 3.2 Baso % (Auto) 1.3 Neut # (Auto) 4900 Lymph # (Auto) 1200 [place] # (Auto) 500 Eos # (Auto) 200 Baso # (Auto) 100 Platelet Estimate Adequate on smear RBC Morphology Normal morphology Sodium 137 Potassium 3.5 Chloride 105 Carbon Dioxide 28 BUN 19 H Creatinine 0.49 L Estimated GFR > 60 BUN/Creatinine Ratio 38.8 H Glucose 89 Calcium 8.4 Total Bilirubin 0.5 AST 43 H ALT 33 Alkaline Phosphatase 96 Troponin I < 0.012 Total Protein 6.4 Albumin 3.8 Globulin 2.6 Albumin/Globulin Ratio 1.5 Lipase 96 Assessment & Plan Assessment & Plan narrative: Fall with open fifth proximal phalanx fracture. Fall mechanical in nature. Admit the patient to medical observation. Continue pain control. Of note the patient did have 1 dose of Keflex in the ER as a prophylactic treatment. Orthopedic surgeon and primary team will evaluate and decide on any surgical intervention in AM. Hypertension. Monitor blood pressure and resume home medication accordingly. Hyperlipidemia. Resume home statin. DVT prophylaxis SCDs due to observational status. CODE STATUS full code. Disposition likely home in 1 to 2 days. - As the provider of this telehealth evaluation, requested by the patient's evaluating physician, I attest that I introduced myself to the patient, provided my credentials and determined that telemedicine via a real-time, 2 way interactive audio and video platform is an appropriate and effective means of providing this service. - I reviewed the patient's chart and had a discussion with the member of the patient's treatment team. - The patient and I mutually agreed with continuation of this evaluation via telemedicine. The patient consented for the telemedicine evaluation. - This virtual encounter was taken place from [place] by Dr. Jose G Delaney. The patient was evaluated at [facility]. The encounter was approximately 35 minutes. The nurse was present during the entire time of the encounter and was able to move the stethoscope in appropriate directions. Time-Based Coding :: [TOTAL MINUTES] spent with patient and on the chart (including review of chart, obtaining history, exam, reviewing outside data, placing orders, documenting exam and treatment plan, and counseling patient) on [DATE].
[2025-06-05] MEDS: LOSARTAN 50 MG TABLET 100 MG PO (22:23)
[2025-06-05] MEDS: ATORVASTATIN 20 MG TABLET PO (22:24)
[2025-06-05] MEDS: PANTOPRAZOLE DR 40 MG TABLET PO (22:25)
[2025-06-05] MEDS: OXYCODONE IR 5 MG TABLET PO (22:28)
[2025-06-06] MEDS: ACETAMINOPHEN 325 MG TABLET 650 MG PO ×3 (00:57→17:30)
[2025-06-06] MEDS: ONDANSETRON 4 MG ODT SL (01:03)
[2025-06-06 03:44] VITALS: BP 151/70; PULSE 71; RESP 18; TEMP 36.6
[2025-06-06] MEDS: OXYCODONE IR 5 MG TABLET PO ×5 (03:48→20:24)
[2025-06-06] MEDS: SODIUM CHLORIDE 0.9% 1,000 ML 100 ML IV (03:50)
[2025-06-06 06:29] LABS: Add Manual Diff / Slide Review NO; Hematocrit 33.4 % (36-46); Hemoglobin 11.6 g/dL (12.0-16.0); Lymphocytes Absolute Auto 900 /uL (1100-4500); Mean Corpuscular HGB Conc 34.8 % (30-36); Mean Corpuscular Hemoglobin 32.4 PG (26-34); Mean Corpuscular Volume 93.3 fL (80-100); Platelet Count 221 X10^3/uL (150-400)
[2025-06-06 06:43] LABS: Blood Urea Nitrogen 15 mg/dL (7-17); Calcium 8.2 mg/dL (8.4-10.2); Carbon Dioxide 28 mmol/L (22-32); Chloride 101 mmol/L (98-107); Estimated Glomerular Filt Rate > 60 mL/min (>60); Glucose 98 mg/dL (70-99); HEMOLYSIS < 15 (0-50); Potassium 3.6 mmol/L (3.4-5.1); Sodium 134 mmol/L (137-145)
[2025-06-06 08:00] VITALS: BP 163/64; PULSE 75; RESP 16; TEMP 36.6; O2SAT 94
[2025-06-06] MEDS: PANTOPRAZOLE DR 40 MG TABLET PO (09:14)
[2025-06-06] MEDS: ONDANSETRON 4 MG ODT PO (11:07)
--- NOTE | 2025-06-06 11:17 | PT.IIE ---
Physical Therapy Inpatient Evaluation/Re-Eval M1 PT/OT-IP Prior Functional Status Start: 06/06/25 11:01 Freq: NEEDED Status: Active Protocol: Document 06/06/25 10:35 MB (Rec: 06/06/25 11:16 MB Desktop) Medical Review Prior Functional Status Medical History Yes Reviewed Communication WNLs Mobility and Gait I and pt reports many falls, has broken her left arm x3 Activities of Daily I living at [facility], pt is I with ADLs Living and IADL's Prior Functional Pt states she lives with her in [facility] and he has Level (Other details been trying to get her to use an AD and she has been ) resistant. They do not drive and get a van or bus for transport. Social History Household Members spouse Living Arrangements Assisted Living Number of Floors ( One Floor Floors) Home Environment Walk in Shower,Built-In Shower Seat Home Equipment Quad Cane,Straight Cane,Hand Held Shower,Grab Bars Near Toilet,Grab Bars In Shower Employment Status Retired M2 PT-IP Current Condition Start: 06/06/25 11:01 Freq: NEEDED Status: Active Protocol: Document 06/06/25 10:35 MB (Rec: 06/06/25 11:16 MB Desktop) Physical Therapy Current Condition Current Condition Evaluation Date 06/06/25 Treatment Diagnosis Fall and fifth proximal phalanx fx left hand, splinted M3 PT-IP Subjective Start: 06/06/25 11:01 Freq: NEEDED Status: Active Protocol: Document 06/06/25 10:35 MB (Rec: 06/06/25 11:16 MB Desktop) Subjective Physical Therapy Visit Type Type Initial Evaluation Visit Start Time 10:35 Visit Stop Time 10:55 Number of SCHOOL COMMUNITY RELATIONS COORDINATOR Visits 0 Physical Therapy Visit Comments Patient Comments Pt is agreeable to PT. Therapy Pain Assessment Pain When Pain Assessed At Rest Pain Present Pain Present Pain Reported Location Left chest Scale Used Not rated, pt reports rib fx, dxs negative left hand Scale Used Not rated M4 PT-IP Mobility and Gait Start: 06/06/25 11:01 Freq: NEEDED Status: Active Protocol: Document 06/06/25 10:35 MB (Rec: 06/06/25 11:16 MB Desktop) PT-Bed Mobility Assessment Supine to Sit Supine to Sit Standby Assistance Scooting Scooting to Edge of Standby Assistance Bed PT-Transfer Assessment Sit to and From Stand Sit to and from Standby Assistance Stand Equipment Transfer Assistive Gait Belt,Large Based Quad Cane Device Orthotic/Prosthetic Yes Devices or Brace: Transfers Transfer Destination Bed Transfer Technique Ambulation Transfer Ability Level of Assist Standby Assistance Comments Mobility Comments Slow mobility, PT cannot check orthostatics given left UE splint, right cubital IV active and history breast CA with findings on dxs this adm in right breast. Pt does report she is nauseated and light-headed when she is up Gait Assessment Gait Gait Assistance Standby Assistance Required: Distance (Feet) 35 Assistive Devices Assistive Device Gait Belt,Large Based Quad Cane Gait Deviations General Gait Pattern Antalgic,Decreased Stride Length,Decreased Feet Clearance,Flexed Trunk Factors Limiting Gait Function Factors Limiting Limited Range of Motion,Pain Gait Function Comments Gait Comments QC use in right hand and PT manages IV pole and line Stair Climbing Assessment Comments Stair Climbing No steps at [facility] Comments PT-Balance Assessment Sitting Balance and Reactions Static Sitting Good Balance Ability Dynamic Sitting Good Balance Ability Standing Balance and Reactions Static Standing Good Balance Ability Dynamic Standing Good Balance Ability Device Used QC in right hand M5 PT-IP Objective Assessments Start: 06/06/25 11:01 Freq: NEEDED Status: Active Protocol: Document 06/06/25 10:35 MB (Rec: 06/06/25 11:16 MB Desktop) Orientation Orientation/Cognition Level of Alertness Alert Orientation Name,Age,Birthday,Situation Language Function No Deficits Noted Ability Safety Awareness Decreased Safety Awareness Memory Description No Deficits Noted Gross Range of Motion Upper Extremity ROM Assessment Right Impaired Impairments Left hand and wrist in splint, right cubital IV active and beeping Lower Extremity ROM Assessment Within Functional Limits Strength Lower Extremity Strength Assessment Within Functional Limits Coordination Assessment Assessment Coordination NT Comments Sensation Assessment Comments Sensation Comments NT Other Assessments Other Other Assessments Bruising right dorsal hand M6 PT-IP Treatment Start: 06/06/25 11:01 Freq: NEEDED Status: Active Protocol: Document 06/06/25 10:35 MB (Rec: 06/06/25 11:16 MB Desktop) Physical Therapy Treatment Education Education Provided Safety Other Treatments Other Treatment Re-ed in benefits of using QC at d/c at this time given Performed history of falls and currently cannot use left hand in splint M7 PT-IP Assessment and Plan Start: 06/06/25 11:01 Freq: NEEDED Status: Active Protocol: Document 06/06/25 10:35 MB (Rec: 06/06/25 11:16 MB Desktop) PT Summary Assessment and Plan Potential Rehabilitation Fair Potential Status of Condition Evolving at Evaluation Summary Impairments Pain,ROM,Strength,Balance,Coordination,Bed Mobility, Transfers,Gait,Activity Tolerance Assessment Summary Pt is an 79 y/o female who lives in I living at [facility] and who is usually I at baseline. She nor drive. Pt reports history of falls and that this is the 3rd LUE fracture. She states that her has asked her to use an AD and she has resisted. PT cannot check orthostatics today d/t LUE splint, RUE IV and history of breast CA. Pt is light-headed and nauseated with getting up and short gait in the room and so she might have dropping BP with mobility. She is SBA for gait with QC. Recommend increased assistance and PT at d/c. Goals Bed Mobility Goal Independent Transfer Goal Independent,Cane Gait Goal Independent,Cane Gait Distance 100 Days to Meet Goals 5 Frequency of Treatment Frequency Of Once a Day Treatment Treatment Plan Physical Therapy Bed Mobility Training,Transfer Training,Gait Training, Treatment Plan Therapeutic Exercise,Balance Retraining,Discharge Planning,Hot or Cold Pack,Neuromuscular Re-ed, Coordination Retraining,Manual Therapy Precautions Other Precautions No BP UEs Recommendations To Nursing Amount of Assist Standby Assistance Needed Discharge Recommendations PT Discharge Home with Assistance,Home Health,Home vs SNF Recommendations Transportation Needs Private Vehicle at Discharge - PT assist x1
--- NOTE | 2025-06-06 11:38 | PC.NURSE ---
Pt A&O, directive of care makes needs known easily. Is presently up to chair. Spoke with Dr. Mcdonnell about Pt concerns. No new orders presently.
[2025-06-06 12:00] VITALS: BP 195/95; PULSE 67; RESP 16; TEMP 37.1; O2SAT 96
--- NOTE | 2025-06-06 13:15 | CM.DANOTE ---
Patient is a 79 yo female who was admitted OBS Status on 06/05/25 for GLF with facial injury and open finger fx. Pt has [employer] and [employer] for insurance and her PCP is Renata Cornelius. EMR was reviewed. Per MD, pt with hx of breast CA and had GLF after taking her daily walk and got tripped up and fell and admitted for pain control and possible Ortho consult for open fx. Per PT, pt with 3 GLFs in the past few months and feel pt could likely d/c back to [facility] with increased assist and HH. SW met bedside with pt and spouse (very [place] [employer]) and explained role and they confirm they live at [facility] on the independent side and spouse is about to turn 92 yo but both are fairly active and remain independent at this time. They do not use DME to ambulate and no longer are driving and rely on public transportation of [facility] facility van. Pt denies any local family and states her sister is the next closest and she lives in [place]. Pt is agreeable with return to [facility] at d/c and agreeable to HH and denies any hx of HH or SNF and therefore no HH preference. SW made [facility] referral based on Vendor Calendar. F2F completed but not sent yet. Pt may need assist with getting transport back to [facility] and interested in seeing if facility van can transport, maybe a friend, or taxi. Plan: SW to follow for plan of discharge back to [facility] with new [facility] referral and any further needs. EDILBERTO Randhawa Discharge Planning/Care Management CM Discharge Assessment Start: 06/05/25 18:13 Freq: Status: Active Protocol: Document 06/06/25 13:12 BF (Rec: 06/06/25 13:14 BF [id number]) Discharge Planning Assessment Assigned Discharge EDILBERTO [place] Manager DPOA/Assigned spouse Designee Name Advance Directives? No Advance Directives No on File History Provided By Patient,Significant Other,Medical Record Has Patient been No admitted in last 30 days? Prior Living Assisted Living Arrangements Household Members spouse Type of Relies on Others transporation used prior to admit Facility Name [facility] Admitted From: Willing to Return to Yes Facility? Independent with ADL Yes 's Is patient alert and Yes oriented? Caregiver for No: Helps 91 yo spouse Another Patient/Family Home with Home Health Preference Barriers to No Discharge Discharge Plan Home with Home Health Community Services Physical Therapy,Occupational Therapy,Home Health Nurse Transportation Possible [facility] vehicle vs friend? Arrangement Referrals Initiated Home Health If patient plan is Yes home with home health: Has signed face to face form been completed? Medicare Choice List Yes Provided Medicare choice list patient,family reviewed on electronic tablet with SNF/HH Preference [facility] based on Vendor Calendar Whiteboard Updated Yes in Patient Room with name and ext. # of Drill Runner Helper Review Status In Process Please Provide Date 06/06/25 Initial DC Assessment Was Performed Next Review Type Continued Stay Review
[2025-06-06 16:54] VITALS: BP 170/80; PULSE 65; RESP 17; TEMP 37.1; O2SAT 93
[2025-06-06 20:00] VITALS: BP 165/78; PULSE 59; RESP 16; TEMP 36.8; O2SAT 95
[2025-06-06] MEDS: LOSARTAN 50 MG TABLET 100 MG PO (20:22)
[2025-06-06] MEDS: ATORVASTATIN 20 MG TABLET PO (20:24)
--- NOTE | 2025-06-06 20:33 | P.PN_ITS ---
Subjective Subjective Interval history: 79-year-old female with history of right-sided breast cancer, hypertension, hyperlipidemia who sustained a ground level fall sustaining a possible open intra-articular this proximal phalanx fracture that extends into the MCP articular surface. She underwent washout and laceration repair. She developed an episode of bradycardia, nausea, and chest pain while in the emergency department that led to concern of a potential cardiac event. EKG and troponin was negative. She continued to feel poorly throughout her ER stay and ultimately was admitted for observation. She had another episode today of feeling ?hot? and dizzy. She then had an episode of nausea and relationship to receiving IV pain medication. She complains of pain to her left anterior lateral and posterior chest. She has been asking for a chest x-ray to look for fractures. She denies any shortness a breath. She complains of ztinging pain in 1 of her top front teeth when she tries to eat. She did hit her upper lip and mouth when she fell as well. She got a small chip on the tip of 1 of her front teeth Exam Vital Signs (past 8 hours): - 06/06/25 16:54 Temperature 98.7 F Pulse Rate 65 Respiratory Rate 17 Blood Pressure 170/80 H Pulse Oximetry 93 Oxygen Flow Rate 0 Oxygen Delivery Method Room Air Oxygen Flow Rate 0 Narrative Exam Narrative: GEN: Very pleasant elderly female, Alert and oriented x 3, NAD HEENT:NC, Face symmetric, there is a tiny chip on her right front tooth, she has a hematoma to her upper lip with small abrasions, on the lingual surface of her upper front teeth, there is some bleeding right at the base of the teeth, but no obvious fractures or other obvious injuries CHEST: Respiratory excursions symmetric, CTAB, she is tender to palpation along her left mid anterior lateral and posterior ribcage, but not specifically point tenderness CV: RRR, no M/R/G ABD: Soft, NT/ND, BT present in all 4 quadrants, no organomegaly or masses EXTR: warm, well perfused, no C/C/E, left upper extremity is in a splint SKIN: warm and dry, no rash NEURO: Alert and oriented x 3, nonfocal Objective Labs 06/06/25 06:21 06/06/25 06:21 Labs: Laboratory Results - last 24 hr 06/06/25 06:21 WBC 8.5 RBC 3.58 L Hgb 11.6 L Hct 33.4 L MCV 93.3 MCH 32.4 MCHC 34.8 RDW 12.5 Plt Count 221 Neut % (Auto) 79.5 H Lymph % (Auto) 10.4 L [place] % (Auto) 9.5 Eos % (Auto) 0.1 L Baso % (Auto) 0.5 Neut # (Auto) 6700 Lymph # (Auto) 900 L [place] # (Auto) 800 Eos # (Auto) 0 Baso # (Auto) 0 Sodium 134 L Potassium 3.6 Chloride 101 Carbon Dioxide 28 BUN 15 Creatinine 0.51 L Estimated GFR > 60 BUN/Creatinine Ratio 29.4 H Glucose 98 Calcium 8.2 L PFSH Social History household members: spouse Smoking Status: Never smoker alcohol intake: never Assessment & Plan Assessment & Plan narrative: 1. Ground level fall with open 5th proximal phalanx fracture, lip trauma, dental trauma, and musculoskeletal chest pain Discussed the importance of pain management with regard to her musculoskeletal chest pain. Advised that there was no evidence of rib fractures on her CT scan. Advised that even if she had a missed rib fracture, there is no evidence of displacement. Treatment would be pain management and pulmonary hygiene. Advised that she should see a dentist to look into whether she has had any dental injury, and she agrees. Advised to work on mobilization and pain management. As she was admitted under observation status she would require self pay to go to a intermediate facility for rehabilitation. She would likely benefit from returning to her longterm facility with home health services. 2. Episodes of bradycardia, nausea, and sensation of feeling hot Suspect this is vasovagal in nature. When PT worked with her today there was a sense that this was likely orthostatic. However, given her splinted left arm, and her history of right breast cancer and lymphedema in the right arm, orthostatic vital signs could not be performed. We will continue to monitor. Work on slow position changes. Cardiac enzymes were negative 3. Hypertension Continue losartan. 4. Hyperlipidemia Continue atorvastatin 5. Presumed psychiatric illness/depression Patient does take lamotrigine 250 mg daily. Unclear indication as it has not documented in her H and P. she does not report seizure disorder history. The dosing is quite high. Would recommend follow-up on this in the morning Code status Full Prophylaxis Low Matilde score Disposition Anticipate discharge home tomorrow Time-Based Coding :: [TOTAL MINUTES] spent with patient and on the chart (including review of chart, obtaining history, exam, reviewing outside data, placing orders, documenting exam and treatment plan, and counseling patient) on [DATE]. Quality VTE Deep Vein Thrombosis/Pulmonary Embolism Present on Admission: No
[2025-06-07] VITALS: BP 155/67; PULSE 67; RESP 16; TEMP 37; O2SAT 96
[2025-06-07] MEDS: ACETAMINOPHEN 325 MG TABLET 650 MG PO ×4 (00:07→17:50)
[2025-06-07] MEDS: OXYCODONE IR 5 MG TABLET PO ×5 (00:07→17:50)
[2025-06-07 04:00] VITALS: BP 154/76; PULSE 64; RESP 17; TEMP 37.1; O2SAT 91
[2025-06-07] MEDS: ONDANSETRON 4 MG/2 ML INJ IV (04:06)
[2025-06-07 05:23] LABS: Add Manual Diff / Slide Review NO; Hematocrit 33.0 % (36-46); Hemoglobin 11.6 g/dL (12.0-16.0); Lymphocytes Absolute Auto 1300 /uL (1100-4500); Mean Corpuscular HGB Conc 35.1 % (30-36); Mean Corpuscular Hemoglobin 32.8 PG (26-34); Mean Corpuscular Volume 93.6 fL (80-100); Platelet Count 218 X10^3/uL (150-400)
[2025-06-07 05:43] LABS: Blood Urea Nitrogen 12 mg/dL (7-17); Calcium 8.3 mg/dL (8.4-10.2); Carbon Dioxide 29 mmol/L (22-32); Chloride 104 mmol/L (98-107); Estimated Glomerular Filt Rate > 60 mL/min (>60); Glucose 93 mg/dL (70-99); HEMOLYSIS < 15 (0-50); Potassium 3.6 mmol/L (3.4-5.1); Sodium 137 mmol/L (137-145)
[2025-06-07 08:00] VITALS: BP 138/79; PULSE 62; RESP 16; TEMP 36.3; O2SAT 93
[2025-06-07] MEDS: PANTOPRAZOLE DR 40 MG TABLET PO (08:33)
[2025-06-07] MEDS: SODIUM CHLORIDE 0.9% FLUSH 10 ML IV (08:34)
--- NOTE | 2025-06-07 10:29 | OT.IP.EVAL ---
Occupational Therapy Inpatient Evaluation/Re-Eval M1 PT/OT-IP Prior Functional Status Start: 06/06/25 11:01 Freq: NEEDED Status: Active Protocol: Document 06/07/25 09:36 DEMARNDAINSLEY (Rec: 06/07/25 09:42 [facility]) Medical Review Prior Functional Status Medical History Yes Reviewed Communication WNLs Mobility and Gait I and pt reports many falls, has broken her left arm x3 Activities of Daily I living at [facility], pt is I with BADLs, medication mgmt, Living and IADL's and personal laundry. [facility] provides meals, deep cleaning , and transportation Prior Functional Pt states she lives with her in [facility]. Pt reports Level (Other details that she assists her in getting ready for the ) day. Social History Household Members spouse Living Arrangements Assisted Living Number of Stairs To 3 floor apartment with elevator Enter/Railing? Home Environment Walk in Shower,Built-In Shower Seat Home Equipment Quad Cane,Straight Cane,Hand Held Shower,Grab Bars Near Toilet,Grab Bars In Shower Employment Status Retired Additional Social Pts son lives in [place] but is coming to assist with pts History Comment care. M2 OT-IP Current Condition Start: 06/07/25 09:35 Freq: Status: Active Protocol: Document 06/07/25 09:36 SHANKAR (Rec: 06/07/25 09:42 [facility]) Occupational Therapy Current Condition Current Condition Evaluation Date 06/07/25 Treatment Diagnosis s/p GLF with L UE fx (5th metacarpal) Diagnosis Onset Date 06/05/25 Post Operative Precautions Other Precautions L forearm in rigid splint M3 OT- IP Subjective and Pain Start: 06/07/25 09:35 Freq: Status: Active Protocol: Document 06/07/25 09:36 SHANKAR (Rec: 06/07/25 09:42 [facility]) OT- Subjective Occupational Therapy Visit Type Type Initial Evaluation Visit Start Time 08:15 Visit Stop Time 08:46 Notes Pt sitting EOB eating breakfast with her spouse on entrance of OT. Pt agreeable to OT eval. Occupational Therapy Visit Comments Patient Comments to go home with spouse OT Pain Assessment Pain When Pain Assessed At Rest Pain Present Pain Present Pain Reported Location Left chest Intensity 8 Scale Used Numeric (0 - 10) Back Intensity 8 Scale Used Numeric (0 - 10) left hand Intensity 8 Scale Used Numeric (0 - 10) M4 OT- IP ADL's Start: 06/07/25 09:35 Freq: Status: Active Protocol: Document 06/07/25 09:36 SHANKAR (Rec: 06/07/25 09:42 [facility]) OT [id number] General Evaluation Self-Feeding Ability Independent OT ADL-Grooming General Evaluation Areas Needing Retrieving/Set-up of Grooming Items Assistance Comments OT Grooming Comments pt brushed her hair and washed her R hand sink side OT ADL-Oral Care Comments Oral Care Comments not observed OT ADL-Dressing General Eval Upper Body Dressing Moderate Assistance Ability Lower Body Dressing Maximum Assistance Ability Comments OT Dressing Comments total A for socks, max A for brief, mod A for UB OT ADL-Toileting General Evaluation Toileting Ability Moderate Assistance Areas Needing Manage Clothing Assistance Devices Toileting Assistive Grab Bars Devices OT ADL-Bathing Comments OT Bathing Comments not observed M5 OT- IP IADL's Start: 06/07/25 09:35 Freq: Status: Active Protocol: Document 06/07/25 09:36 DEMARELLIOT (Rec: 06/07/25 09:42 [facility]) OT-Instrumental Activities of Daily Living Deficits IADL Deficits Deficits Identified Home Safety Awareness Awareness of Need Decreased Awareness for Assistance at Home Ability to Problem Able to Problem Solve Solve Emergency Situations Medication Management Medication No Deficits Identified Management Money Management Money Management No Deficits Identified Meal Preparation Meal Preparation Caregiver Provides Assist Sole Rougher Sole Rougher Caregiver Provides Assist Driving Driving Caregiver Provides Assist M6 OT- IP Functional Cognition Start: 06/07/25 09:35 Freq: Status: Active Protocol: Document 06/07/25 09:36 DEMARMARY GRACEMEILUIS DANIEL (Rec: 06/07/25 09:42 [facility]) Cognitive Factors Limiting Selfcare Function Cognitive Ability Level of Alertness Alert Patient Orientation Name,Age,Birthday,Month,Date,Year,Day of Week,Place, Situation Attention Span Capable of Focused Attention Ability Ability to Follow Able to Follow One Step Commands,Able to Follow Multi- Commands Step Commands Memory Description Short Term Impaired Safety Awareness Underestimates Need for Assistance Cognitive Comments Cognitive Assessment Per chart review, pt has had 3 falls in the last month, Comments when OT asked pt about this she stated that she could not recall if she has had other falls. OT- Vision and Hearing OT- Hearing Assessment OT- Hearing WFL Assessment OT- Vision Assessment Visual Acuity WFL,Glasses For Reading M7 OT- IP Mobility and Balance Start: 06/07/25 09:35 Freq: Status: Active Protocol: Document 06/07/25 09:36 DEMARMARY GRACEMEILUIS DANIEL (Rec: 06/07/25 09:42 [facility]) OT- Bed Mobility Assessment Supine to Sit Supine to Sit Assist Standby Assistance Sit to Supine Sit to Supine Assist Standby Assistance Scooting Scooting to Edge of Standby Assistance Bed OT-Transfer Assessment Sit to and From Stand Sit to and from Standby Assistance Stand Transfers Transfer Ability Standby Assistance Technique Transfer Destination Chair,Toilet Transfer Technique Stand Step Pivot Devices Transfer Assistive Gait Belt,Small Based Quad Cane Devices Comments Mobility Comments Pt needs vcs to use QC. OT- Gait Assessment Gait Gait Assistance Standby Assistance Required: Distance (Feet) 20 Assistive Devices Assistive Device Gait Belt,Small Based Quad Cane Comments Gait Ability Pt amb throughout room for sink side ADLs and commode. Comments OT- Balance Assessment Sitting Balance and Reactions Static Sitting Normal Balance Ability Dynamic Sitting Normal Balance Ability Standing Balance and Reactions Static Standing Normal Balance Ability Dynamic Standing Good Balance Ability M8 OT- IP Objective Assessments Start: 06/07/25 09:35 Freq: Status: Active Protocol: Document 06/07/25 09:36 DEMARMARY GRACEMEILUIS DANIEL (Rec: 06/07/25 09:42 [facility]) OT Gross Range of Motion Upper Extremity Range of Motion Assessment Left Impaired ROM Impairments L shoulder actively ~90 degrees, passively WFL OT Strength Upper Extremity Strength Assessment Left Impaired Comments Strength Comments R UE 4-/5, L UE not formally tested due to fall related injuries OT-Muscle Tone Assessment Muscle Tone WNL Yes M9 OT- IP Assessment and Plan Start: 06/07/25 09:35 Freq: Status: Active Protocol: Document 06/07/25 09:36 DEMARMARY GRACEMEILUIS DANIEL (Rec: 06/07/25 09:42 [facility]) OT Summary Assessment and Plan Potential Rehabilitation Excellent Potential Analytic Complexity Low at Evaluation Summary OT Impairments Pain,Range of Motion,Strength,Functional Mobility, Grooming,Dressing,Toileting,Bathing,Toilet Transfers, Shower Transfers,Activity Tolerance Assessment Summary Pt is 79 yo F who lives with her 92 yo spouse in an [facility] . Pt is I with BADLs, medication mgmt, personal laundry , and uses public transportation for appointments and shopping needs prior to fall. Pt tripped on a rock while walking outside resulting in a GLF and L UE fx ( 5th metacarpal). Pt is in a rigid splint for her L UE and is L dominant. Pt presents with decreased L shoulder ROM, decreased BADL, decreased functional t/fs , and decreased activity tolerance. Pt would benefit from skilled OT services to address these deficits and promote return towards PLOF. Pt reports she assists her spouse with his LB dressing prior to her fall. Pt would benefit from education on LB AE for dressing needs and pollo-techniques. Pt would benefit from OT and PT services on d/c. Goals Grooming Goal Independent Dressing Goal Independent,Dressing Stick,Long Handled Shoe Horn, Desktop Support Technician,Sock Aid Toileting Goal Independent Bathing Goal Independent,Grab Bars,Hand Held Shower Sprayer Toilet Transfer Goal Independent,Grab Bars Shower Transfer Goal Independent,Walk-in Shower,Shower Chair,Grab Bars Days to Meet Goals 10 Frequency of Treatment Frequency Of Once a Day Treatment Other frequency 5x/wk Treatment Plan OT Treatment Plan ADL Training,Functional Mobility,Therapeutic Exercises, Patient/Family Education,Discharge Planning Discharge Recommendations OT Discharge Home,Home Health Recommendations Transportation Needs Private Vehicle at Discharge
[2025-06-07 12:00] VITALS: BP 170/88; PULSE 61; RESP 18; TEMP 37; O2SAT 96
[2025-06-07] MEDS: ONDANSETRON 4 MG ODT PO (12:47)
--- NOTE | 2025-06-07 12:58 | CM.DPC ---
Addendum entered by EDILBERTO Randhawa 06/07/25 15:46: ADD: Per , pt stable for discharge home today on po meds. Requesting assist with getting meds filled and transport home. SW called [employer] and their college or university business manager is gone for the day but states pt typically uses [employer] and [employer] as she has the cain on her phone. Called [employer] and confirmed they need at least 24 hrs notice, even with a hospital discharge. 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 Agreeable with [facility] downstairs the hospital so she has meds in hand at d/c as long as they take her for med coverage. [facility] does not take and therefore sending to [facility] to use drive through pharmacy. SW inquired about any residents/friends who can transport pt and spouse and she is not interested in asking any other residents to transport her. Pt inquired about [employer] as she states this was used for her at prior admission and SW explained the funds are typically used in emergent situations or for indigent patients and pt stated that they have funds to pay for taxi/uber themselves but will wait to confirm Oxycodone and Zofran filled before discharging. Updated RN and BF Original Note: DCP Cont: Per , will round on pt today but anticipate likely d/c home today as she has been able to ambulate and medically stable for d/c with outpt f/u for her finger fx. SW confirmed with [facility] that they can accept and also sent them completed F2F and HH orders to review. Just waiting to confirm pt will get d/c orders so discharge summary can be faxed to [facility]. SW to follow for plan of discharge back to [facility] independent living today. Pt may need assist with finding ride back as she and spouse no longer drive or have a vehicle and no local family. EDILBERTO Randhawa
--- NOTE | 2025-06-07 15:09 | PT-IP ANOTE ---
Checked in on pt who states she is being discharged by doctor at this time. She declines mobility.
[2025-06-07 16:00] VITALS: BP 182/87; PULSE 66; RESP 18; TEMP 36.6; O2SAT 95
--- NOTE | 2025-06-07 17:09 | PM.DS.1 ---
History of Present Illness History of Present Illness Date Patient Seen: 06/07/25 Chief complaint: Fall w/ Multiple injuries Narrative: Chief complaint: Trip and Fall with multiple injuries History of present illness: 06/05: 79-year-old female with past medical history of right-sided breast cancer, hypertension, hyperlipidemia, presents with a fall. Per the patient's report, the patient went on her usual morning walk when she caught her toe on a rock and fell forward landing on her left hand and hitting the face to the ground. The patient did injure her left and has injured her left finger. Per the patient's report the patient did not lose consciousness and the patient does not take any blood thinner. Otherwise the patient denies any recent fever, chills, nausea, vomiting, diarrhea, chest pain or shortness of breath. In the emergency room, the patient was hemodynamically stable. Labs were relatively benign with negative troponin. CT scan of the head neck and facial bones shows no acute finding. Chest x-ray was also negative. X-ray of the right wrist shows no fracture. X-ray of the left hand shows an intra-articular fifth proximal phalanx fracture that extends into the MCP articular surface. There is also concern for open fracture given the laceration in the same location. other ER physician requested admission for pain control with PT OT. Also recommend to just monitor overnight to make sure there is no other issues. Hospital course: 06/06: She had another episode today of feeling ?hot? and dizzy. She then had an episode of nausea and relationship to receiving IV pain medication. She complains of pain to her left anterior lateral and posterior chest. She has been asking for a chest x-ray to look for fractures. She denies any shortness a breath. She complains of ztinging pain in 1 of her top front teeth when she tries to eat. She did hit her upper lip and mouth when she fell as well. She got a small chip on the tip of 1 of her front teeth 06/07: Patient feeling better today took a shower got up and stood without symptoms. Arrangements veins discharge home by patient request we will follow up with Dr. Bishop Review of systems: No fever or chills No nausea vomiting No shortness a breath No abdominal pain No paresthesia paresis Physical exam: No acute distress Bruising on upper lip with swelling Left hand is bandaged and splinted No labored respirations Assessment and plan: 1. Ground level fall with open 5th proximal phalanx fracture, lip trauma, dental trauma, and musculoskeletal chest pain Discussed the importance of pain management with regard to her musculoskeletal chest pain. Advised that there was no evidence of rib fractures on her CT scan. Advised that even if she had a missed rib fracture, there is no evidence of displacement. Treatment would be pain management and pulmonary hygiene. Advised that she should see a dentist to look into whether she has had any dental injury, and she agrees. Advised to work on mobilization and pain management. As she was admitted under observation status she would require self pay to go to a detention facility for rehabilitation. She would likely benefit from returning to her prison facility with home health services. 2. Episodes of bradycardia, nausea, and sensation of feeling hot resolved Suspect this was vasovagal in nature. Cardiac enzymes were negative 3. Hypertension Continue losartan. 4. Hyperlipidemia Continue atorvastatin 5. Presumed psychiatric illness/depression Patient does take lamotrigine 250 mg daily. Unclear indication as it has not documented in her H and P. she does not report seizure disorder history. The dosing is quite high. Would recommend follow-up on this in the morning Code status Full Prophylaxis Low Matilde score Disposition Anticipate discharge home tomorrow Time-Based Coding :: 35 minutes spent with patient and on the chart (including review of chart, obtaining history, exam, reviewing outside data, placing orders, documenting exam and treatment plan, and counseling patient) Discharge Providers Provider Date of admission: 06/05/25 17:46 Discharge Date: 06/07/25 Primary care physician: SHERRELL Porter Consults: 06/05/25 18:09 Consult to Occupational Therapy Evaluate & Treat Comment: Physician Instructions: Evaluate and treat Consult to Physical Therapy Evaluate & Treat Comment: Physician Instructions: Evaluate and Treat 06/07/25 12:52 Consult to Home Health Routine Comment: open 5th proximal phalanx fx, facial abrasion Reason For Exam: Set up RN/PT/OT for dc to home plan. Discharge provider: Rolly Layton MD Exam Vital Signs (past 8 hours): - 06/07/25 12:00 Temperature 98.6 F Pulse Rate 61 Respiratory Rate 18 Blood Pressure 170/88 H Pulse Oximetry 96 Oxygen Delivery Method Room Air Oxygen Flow Rate 0 Objective Labs 06/07/25 05:09 06/07/25 05:09 Labs: Laboratory Results - last 24 hr 06/07/25 05:09 WBC 5.8 RBC 3.52 L Hgb 11.6 L Hct 33.0 L MCV 93.6 MCH 32.8 MCHC 35.1 RDW 12.3 Plt Count 218 Neut % (Auto) 64.0 Lymph % (Auto) 22.1 L [place] % (Auto) 11.7 Eos % (Auto) 1.5 L Baso % (Auto) 0.7 Neut # (Auto) 3700 Lymph # (Auto) 1300 [place] # (Auto) 700 Eos # (Auto) 100 Baso # (Auto) 0 Sodium 137 Potassium 3.6 Chloride 104 Carbon Dioxide 29 BUN 12 Creatinine 0.54 Estimated GFR > 60 BUN/Creatinine Ratio 22.2 H Glucose 93 Calcium 8.3 L PFSH Social History household members: spouse Smoking Status: Never smoker alcohol intake: never Discharge Plan Discharge Plan Patient Disposition: Home Discharge orders & Medications Prescriptions: New ondansetron 4 mg Tablet,Disintegrating 4 mg PO Q8HR PRN (Reason: Nausea And Vomiting) Qty: 20 0RF oxycodone 5 mg Tablet 5 mg PO Q3H PRN (Reason: Pain, Moderate (4-6)) Qty: 20 0RF ondansetron HCl 4 mg tablet 4 mg PO Q8H PRN (Reason: nausea and vomiting) Qty: 14 0RF oxycodone 5 mg tablet 5 mg PO Q4H PRN (Reason: pain) Qty: 20 0RF ondansetron 4 mg tablet,disintegrating 4 mg PO Q6H PRN (Reason: nausea and vomiting) Qty: 10 0RF Continued atorvastatin 20 mg tablet 20 mg PO DAILY lamotrigine 200 mg tablet 200 mg PO DAILY lamotrigine 25 mg tablet 50 mg PO DAILY losartan 100 mg tablet 100 mg PO DAILY hydrochlorothiazide 12.5 mg tablet 12.5 mg PO DAILY omeprazole 40 mg capsule,delayed release(DR/EC) 40 mg PO DAILY Follow up/Referrals: Renata Cornelius ARNP [Primary Care Provider, Nursing] Visit Report/Discharge Packet Stand Alone Forms: Patient Portal/API Discharge Data Primary Care Provider: Renata Cornelius Attending Provider: Angella Mcdonnell Admit Date/Time: 06/05/25 17:46 Quality VTE Deep Vein Thrombosis/Pulmonary Embolism Present on Admission: No
== END 2025-06-07 18:15 | disposition home or self-care (01) ==
LOC: ED 11:23 → AC 17:47
PROVIDERS: Admitting Provider Family Medicine; Emergency Provider Emergency Medicine; PCP Nurse Practitioner Family; Referring Provider Emergency Medicine; Visit Provider Family Medicine
DX: R51.9 Headache, unspecified (principal); S00.531A Contusion of lip, initial encounter; S62.617B Displaced fracture of proximal phalanx of left little finger, initial encounter for open fracture; K08.89 Other specified disorders of teeth and supporting structures; R07.89 Other chest pain; W18.31XA Fall on same level due to stepping on an object, initial encounter; Y93.01 Activity, walking, marching and hiking; R00.1 Bradycardia, unspecified; I10 Essential (primary) hypertension; E78.5 Hyperlipidemia, unspecified; R11.0 Nausea; Z85.3 Personal history of malignant neoplasm of breast; Z23 Encounter for immunization
CPT/HCPCS: 36415; 70450; 70486; 71260; 72125; 73110; 73130; 74177; 80048; 80053; 83690; 84484; 85014; 85018; 85025; 90471; 93005; 96361; 96365; 96375; 96376; 97161; 97165; 99285; G0378; 90715; J0690; J1171; J2405; Q9967

== ENCOUNTER → 2025-07-21 11:37 | Outpatient (CLI) | payer MEDICARE, OTHER, SELFPAY ==
[2025-06-05 20:13] VITALS: BMI 32.9
--- NOTE | 2025-07-21 11:40 | DI.MG.S_ITS ---
MM diagnostic mammo BI, US breast BI limited: 07/21/2025 BI-RADS: 4 CLINICAL: 79-year old female for bilateral diagnostic mammogram and bilateral diagnostic breast ultrasound. No Tyrer-Cuzick risk score calculation due to the patient's personal history of breast cancer. Patient reports a history of right breast carcinoma diagnosed at age 58. Status-post right lumpectomy with radiation therapy and hormonal therapy. No first-degree family history of breast cancer. The patient reports a palpable abnormality (1 month) in the left breast and recent injury (1 month) in both breasts. The patient had a prior right breast biopsy. PRIOR EXAMS No prior examinations available. MAMMOGRAPHY TECHNIQUE: 2D and 3D (tomosynthesis) digital mammographic views obtained, with additional images as needed for full coverage. Current study was also evaluated with a Computer Aided Detection (CAD) system. ULTRASOUND TECHNIQUE Real-time cannon scale and color doppler imaging of the area of clinical interest was performed with image documentation. TARGETED Bilateral Breast Ultrasound: Real-time ultrasound exam was performed focused to area of clinical and/or imaging concern. DENSITY B. There are scattered areas of fibroglandular density. MAMMOGRAPHY FINDINGS Right (finding-1): Upper Outer Quadrant, Posterior depth: Correlating with surgery site there is an oval mass present with associated calcifications. Left: No mammographic correlate to the left breast UOQ palpable abnormality. No suspicious mass, asymmetry, microcalcification, or other abnormality seen. ULTRASOUND FINDINGS Right (finding-1): Outer at 9:00, 9.5 cm from nipple, measuring 3.2 x 1.7 x 2.4 cm: Correlating with findings on mammogram and surgery site there is an oval, indistinct mass with associated calcification outside of the mass. Right: No abnormal lymph nodes are seen in the axilla. Left: Upper Outer at 2:00, 13.0 cm from nipple: No sonographic abnormality corresponding to patient's palpable finding. IMPRESSION: Right (Mass): Outer at 9:00, 9.5 cm from nipple, measuring 3.2 x 1.7 x 2.4 cm * Suspicious findings with likelihood of malignancy. Left * No evidence of malignancy. RECOMMENDATIONS * Clinical followup is recommended for the left sided symptoms. Right: Outer at 9:00, 9.5 cm from nipple * Ultrasound-guided biopsy for further evaluation. OVERALL ASSESSMENT CATEGORY BI-RADS-4: Suspicious. ELECTRONICALLY SIGNED: Ender Tran M.D. on 07/21/2025 at 02:39:24 PM PT Interpreting Station ID: [id number]
[2025-07-21 15:17] LABS: Add Manual Diff / Slide Review NO; Hematocrit 37.6 % (36-46); Hemoglobin 12.6 g/dL (12.0-16.0); Hemoglobin A1C% w Est Avg Glu 5.1 % (4.0-6.0); Lymphocytes Absolute Auto 1700 /uL (1100-4500); Mean Corpuscular HGB Conc 33.4 % (30-36); Mean Corpuscular Hemoglobin 31.5 PG (26-34); Mean Corpuscular Volume 94.1 fL (80-100); Platelet Count 275 X10^3/uL (150-400)
[2025-07-21 15:32] LABS: Alanine Aminotransferase 24 IU/L (<35); Albumin 4.2 g/dL (3.5-5.0); Albumin Globulin Ratio 1.6 (1.0-2.8); Alkaline Phosphatase 104 U/L (38-126); Blood Urea Nitrogen 19 mg/dL (7-17); Calcium 9.1 mg/dL (8.4-10.2); Carbon Dioxide 27 mmol/L (22-32); Chloride 101 mmol/L (98-107); Estimated Glomerular Filt Rate > 60 mL/min (>60); Globulin 2.6 g/dL (1.7-4.1); Glucose 89 mg/dL (70-99); HDL Cholesterol 102 mg/dL (40-60); HEMOLYSIS < 15 (0-50); Potassium 3.7 mmol/L (3.4-5.1); Sodium 137 mmol/L (137-145); Total Protein 6.8 g/dL (6.3-8.2)
[2025-07-21 15:33] LABS: Cholesterol 200 mg/dL (140-199); Triglycerides 102 mg/dL (35-150)
== END ==
PROVIDERS: PCP Physician Assistant; Referring Provider Physician Assistant; Visit Provider Nurse Practitioner Family
DX: R92.8 Other abnormal and inconclusive findings on diagnostic imaging of breast (principal); R92.1 Mammographic calcification found on diagnostic imaging of breast; N63.15 Unspecified lump in the right breast, overlapping quadrants; E78.2 Mixed hyperlipidemia; Z85.3 Personal history of malignant neoplasm of breast
CPT/HCPCS: 36415; 76642; 77066; 80053; 80061; 83036; 85025; G0279

== ENCOUNTER → 2025-08-11 | Outpatient (CLI) | payer MEDICARE, OTHER, SELFPAY ==
[2025-06-05 20:13] VITALS: BMI 32.9
--- NOTE | 2025-08-11 13:28 | DI.US.S_ITS ---
US bx breast perc w vac device: 08/11/2025. Rad-Path Correlation: Pending CLINICAL: 79-year old female for right procedure that resulted from diagnostic mammogram on 07/21/2025. No Tyrer-Cuzick risk score calculation due to the patient's personal history of breast cancer. Patient reports a history of right breast carcinoma diagnosed at age 58. Status-post right lumpectomy with radiation therapy and hormonal therapy. No first-degree family history of breast cancer. The patient reports a palpable abnormality (1 month) in the left breast and recent injury (1 month) in both breasts. The patient had a prior right breast biopsy. PRIOR EXAMS Mammogram(s): 07/21/2025. Breast Ultrasound(s): 07/21/2025. CONSENT Risks including but not limited to bleeding and infection, benefits and alternatives were discussed with the patient. The patients agreed to the procedure, reported no allergy to local anesthesia and signed the consent form. ROUTINE Right: Patient positioned in the sitting position, prepped and draped in the usual manner using sterile technique. TECHNIQUE Right Breast: Outer at 9:00: Procedure: Ultrasound-guided vacuum-assisted biopsy of a mass. Device: Vacuum-assisted biopsy instrument. Mammotome(R). Anesthesia: Local anesthesia obtained using 5 ml 1%-lidocaine. Secondary local anesthesia obtained using 5 ml 1%-lidocaine with epinephrine. Skin Entry: Incision with #11 blade. Passes: 4. Specimens: 4. Post-procedure imaging: Post-procedure mammogram. Rad/Path Correlation: Pending receipt of pathology report. Conclusion: Ultrasound-guided Vacuum-assisted biopsy with post-procedure mammogram, Right Breast: Outer at 9:00 COMPLICATIONS: No complications were encountered while the patient was in our department. DISPOSITION The patient left our department in good condition with aftercare instructions and urged to contact us should any problem arise. SUMMARY Right Breast: Outer at 9:00: Ultrasound-guided vacuum-assisted biopsy of a mass. PATHOLOGY Right Breast: Outer at 9:00: Radiologist-Pathologist Correlation: Pending receipt of pathology report. ELECTRONICALLY SIGNED: Eric Anthony M.D. on 08/16/2025 at 09:48:24 AM PT Interpreting Station ID: [id number]
--- NOTE | 2025-08-11 13:28 | DI.MG.S_ITS ---
MM clip placement RT: 08/11/2025. BI-RADS: None CLINICAL: 79-year old female for right diagnostic mammogram. No Tyrer-Cuzick risk score calculation due to the patient's personal history of breast cancer. Patient reports a history of right breast carcinoma diagnosed at age 58. Status-post right lumpectomy with radiation therapy and hormonal therapy. No first-degree family history of breast cancer. The patient reports a palpable abnormality (1 month) in the left breast and recent injury (1 month) in both breasts. The patient had a prior right breast biopsy. PRIOR EXAMS Mammogram(s): 07/21/2025. Breast Ultrasound(s): 07/21/2025. MAMMOGRAPHY TECHNIQUE: 2D and/or 3D (tomosynthesis) digital mammographic views obtained, with additional images as needed for full coverage. DENSITY Right: B. There are scattered areas of fibroglandular density. MAMMOGRAPHY FINDINGS Right: Outer at 9:00, 9.5 cm from nipple: There is an oval mass present. There is an (Unspecified) biopsy marker present. IMPRESSION: Right * Biopsy marker present. OVERALL ASSESSMENT CATEGORY BI-RADS None: This exam requires no BI-RADS. ELECTRONICALLY SIGNED: Eric Anthony M.D. on 08/16/2025 at 09:51:02 AM PT Interpreting Station ID: [id number]
--- NOTE | 2025-08-11 14:40 | PATH_ITS ---
[facility] Accession Number: [id number] No. of containers..01 Tissue . 01 Material submitted: . breast - RT BREAST . 01 Diagnosis: RIGHT BREAST: Limited sample consists of blood and fibrin with patchy organization and foreign body giant cell reaction, suggestive of previous instrumentation. No well-preseved breast parenchyma identified for evaluation. No calcifications identified. No definite mass is identified; please correlate with imaging and clinical studies. Please see comment. EDLMI 08/13/2025 1605 Local . 01 Comment: Comment: Consider excision to evaluate for the suspicious mass, if clinically indicated. . This case was also reviewed by Dr. Yessica Ward (Julie), who agrees with the interpretation. . 01 Electronically signed: . Arabella Khan MD, Pathologist NPI- [id number] . 01 Gross description: . Received in formalin with two identifiers and RT breast are multiple yellow to parisi soft tissue fragments admixed with hemorrhagic material aggregating to 2.1 x 1.5 x 0.3 cm. Filtered and submitted entirely in A1. . The specimen was removed on 08/11/2025, time not provided. Cold ischemic time cannot be calculated. Total fixation time is between 6 and 72 hours. ([id number]) /MRV 08/12/2025 1602 Local . 01 Pathologist provided ICD-10: R92.8 . 01 CPT . 079071 Specimen Comment: A courtesy copy of this report has been sent to [phone] Performed at: [address] [address], [place], [place] [id number] MD Yunior Garcia MD Phone: [phone]
== END ==
LOC: US 13:25
PROVIDERS: PCP Physician Assistant; Referring Provider Nurse Practitioner Family; Visit Provider Nurse Practitioner Family
DX: R92.8 Other abnormal and inconclusive findings on diagnostic imaging of breast (principal); N63.15 Unspecified lump in the right breast, overlapping quadrants; Z85.3 Personal history of malignant neoplasm of breast
CPT/HCPCS: 19083; 77065